=== PATIENT | male | born 1980 | race Caucasian/White ===

== ENCOUNTER 2024-12-19 12:58 | Inpatient (IN) | payer MEDICAID, SELFPAY ==
[2024-12-19 13:12] VITALS: BP 126/76; PULSE 72; O2SAT 94
--- NOTE | 2024-12-19 13:34 | ED.GENADULT ---
HPI - General Adult General Chief complaint: Extremity Injury, Lower Stated complaint: bilateral numbness feet Time Seen by Provider: 12/19/24 13:32 Source: patient and RN notes reviewed Mode of arrival: ambulatory Limitations: no limitations History of Present Illness ED Provider: Jessica Delacruz HPI narrative: This is a 89-scet-dla-male, with a hx of DM, HTN, HLD, spinal stenosis who presents emergency department from [facility] on section 21 with concerns of bilateral foot and leg weakness. Patient reports that yesterday he developed a numbness and tingling in his bilateral feet. He states that this morning he awoke and he felt as though his feet were cold and progressively had worsening numbness and tingling. He states that he was able to ambulate at that time and went back to bed after receiving his medications from [facility]. He awoke after a nap this afternoon and he has been unable to walk due to numbness and weakness in his bilateral legs.. He states that he has numbness and weakness from his bilateral knees distally. He states that this is never happened to him before. He does report over the last several days he has had diarrhea, states he has been taking anti-diarrheal medications. No bloody or black stool. No fevers or chills. No chest pain or shortness of breath. No abdominal pain, nausea, or vomiting. No history of IVDA. Patient does endorse back pain. No urinary or bowel retention or incontinence. No saddle anesthesia. MD complaint: Bilateral foot and leg weakness Onset (ago): day(s) Radiation: back Severity: moderate Quality: aching Pain Consistency: constant Relieving factors: none Exacerbating factors: none Associated symptoms: denies other symptoms Treatments prior to arrival: none Related Data Home Medications ?Medication ?Instructions ?Recorded ?Confirmed acetaminophen 325 mg tablet 650 mg PO Q4H PRN Fever Or Pain 12/20/24 12/20/24 aluminum-mag hydroxide-simethicone 30 ml PO QID PRN Constipation 12/20/24 12/20/24 200 mg-200 mg-20 mg/5 mL oral susp benzocaine 15 mg lozenges 15 mg mucous membrane Q2H PRN Sore 12/20/24 12/20/24 Throat calcium carbonate 500 mg PO Q4H PRN Heartburn 12/20/24 12/20/24 divalproex 500 mg tablet,extended 1,000 mg PO BEDTIME 12/20/24 12/20/24 release 24 hr docusate sodium 100 mg tablet 100 mg PO BID 12/20/24 12/20/24 glipizide 10 mg tablet 10 mg PO BID 12/20/24 12/20/24 guaifenesin 600 mg tablet, 1,200 mg PO Q12H PRN Cough 12/20/24 12/20/24 extended release 12 hr (Mucinex) hydroxyzine pamoate 50 mg capsule 50 mg PO Q4H PRN Anxiety 12/20/24 12/20/24 lisinopril 40 mg tablet 40 mg PO BEDTIME blood pressure 12/20/24 12/20/24 metformin 500 mg tablet 500 mg PO BIDWMEAL 12/20/24 12/20/24 tramadol 25 mg tablet 25 mg PO Q6H PRN pain 12/20/24 12/20/24 Allergies Allergy/AdvReac Type Severity Reaction Status Date / Time ketorolac (From Toradol) Allergy Unknown Verified 12/19/24 13:43 Review of Systems Review of Systems: Constitutional : No Fever, No Chills ENT/Mouth : No sore throat, No Rhinorrhea Eyes: No Eye Pain, No Swelling, No Redness Cardiovascular : No Chest Pain, No SOB Respiratory : No Cough, No Sputum Gastrointestinal : No Nausea, No Vomiting, No Diarrhea, No abdominal Pain Genitourinary : No Dysuria, No Hematuria Musculoskeletal : No joint pain, No Myalgias, No Joint Swelling Skin : No Skin Lesions Neuro : No Weakness, No Numbness, No Headache All other systems reviewed and are negative Yes all other systems are reviewed and are negative Constitutional: Constitutional: Reports as per HPI Eyes: Eyes: Reports as per HPI, Denies change in vision and Denies eye discharge ENT: Reports system reviewed and no additional complaints, except as documented, Reports as per HPI, Reports Normal hearing present and Denies facial pain Cardiovascular: Cardiovascular: Reports as per HPI and Denies chest pain Respiratory: Respiratory: Reports as per HPI and Denies cough Gastrointestinal: Gastrointestinal: Reports as per HPI, Reports no additional gastrointestinal complaints, Denies abdominal pain, Denies diarrhea, Denies nausea and Denies vomiting Genitourinary: Genitourinary: Reports as per HPI Musculoskeletal: Musculoskeletal: Reports no additional musculoskeletal complaints and Reports as per HPI Integumentary/Breasts: Skin/Breast: Reports system reviewed and no additional complaints, except as docu, Reports as per HPI, Reports erythema, Denies rash and Denies wounds Neurologic: Reports Normal hearing present Psychiatric: Psychiatric: Reports no additional psychiatric complaints and Reports as per HPI Endocrine: Endocrine: Reports no additional endocrine complaints and Reports as per HPI Hematologic/Lymphatic: Hematologic/Lymphatic: Reports no additional hematologic/lymphatic complaints and Reports as per HPI Allergic/Immunologic: Allergic/Immunologic: Reports no additional allergic/immunologic complaints and Reports as per HPI [facility] Past Medical History Attestation statement: The following information was validated with the patient. Medical History (Updated 12/20/24 @ 12:01 by Marta Miller CNP) ADHD Bipolar disorder Chronic back pain Morbid obesity Hyperlipidemia Essential hypertension Type 2 diabetes mellitus Social History Social History Advance Directives: No Advance Directives Information Provided: Yes service: No Physical Exam ED Vital Signs: Vital Signs - 24 hr 12/19/24 13:42 12/19/24 18:14 12/19/24 19:54 Temperature 97.8 F 98 F 97.7 F Pulse Rate 93 75 84 Respiratory Rate 16 16 Blood Pressure 115/70 106/65 Pulse Oximetry 94 97 94 Oxygen Delivery Method Room Air Room Air Room Air 12/19/24 21:26 12/20/24 00:05 Temperature 97.7 F 98.2 F Pulse Rate 94 86 Respiratory Rate 22 H Blood Pressure 120/81 115/65 Pulse Oximetry 95 98 Oxygen Delivery Method Room Air Room Air BMI result Body Mass Index 60.7 Const General: cooperative, comfortable and no acute distress Orientation/consciousness: patient oriented x3 Limitations: no limitations [facility] Head: Yes normal to inspection, Yes normocephalic and Yes atraumatic Ears: hearing grossly normal bilaterally General nose exam: Normal external nose present Face and sinus: Yes normal facial exam Mouth: Normal oral and palatal mucosa present, oropharynx normal and moist mucous membranes Throat: Yes posterior oropharynx normal Eyes General: appearance normal, both eyes and all related structures Eyelids: Yes eyelids normal Conjunctivae: conjunctivae normal Sclerae: sclerae normal Pupils: Equal, round and reactive pupils present EOM: EOMs intact bilaterally Neck Neck: Yes normal visual inspection, Yes full ROM and Yes no lymphadenopathy Lymphatic: no lymphadenopathy noted Chest Chest palpation & inspection: normal inspection of the chest Resp Effort & Inspection: normal respiratory effort and able to speak in complete sentences Auscultation: clear to auscultation bilaterally Cardio Rate: regular rate Rhythm: regular rhythm Heart sounds: S1 normal heart sound present and S2 normal heart sound present GI Inspection: Yes normal to inspection Skin General skin exam: no rashes or lesions noted Trauma: no lacerations or abrasions Wounds: no wounds Neuro Other: BL patellar reflexes 1+ bilaterally. Decreased sensation to BL lower extremities circumfrentially. Legs are well perfused. Strong DP pulses. General: patient oriented x3, moves all extremities and Unable to assess gait Cranial nerves: Yes CN's II-XII intact bilaterally, Yes Equal, round and reactive pupils present and Yes Normal hearing present Cognition (Neuro): normal cognition Gait exam (Neuro): Unable to assess gait Pupils: Normal pupillary reactivity/response: bilateral Extrem Other: Unable to lift legs up off stretcher secondary to weakness. General: Yes normal to inspection Right upper extremity: normal to inspection Left upper extremity: normal to inspection Left lower extremity: normal to inspection Course Reevaluation(s) Reevaluation #1: Patient protein elevated which indcated Guillan Bare Disease. Dr. Govea states patient could be admitted to the hospitalist. Case was discussed with Dr. Gonzalez ICU Attending who states iF patients FVC is greater than a 1000 and negative inspiratory pressure over 30 patient could go to the hospitalist. Respiratory therapist Angel evaluated patient FVC 4,000 and NIP is 40. IV IG ordered dose was discussed with pharmacist Saeid who states patient will be receiving 70 g per day. Once patient received medication. Patient is no longer have weakness. Patient has complete range of motion of lower extremities with sensation and strength. Rectal tone who is normal. Negative saddle anesthesia. Reflexes intact. Initially hospitalist Dr. Meneses when and patient transfer for MRI to rule out cauda equinus syndrome. [place], and [facility] send rejected transferred due to patient's size. Upon re-evaluation by Dr. Meneses she states patient will be admitted to the hospital due to patient's improvement in symptoms. Patient completely moving all extremities. Patient has unlikely has cauda equinus. ESR CRP negative. Unlikely epidural abscess. Time: 01:30 Medications Administered Generic Name Dose Route Start Last Admin Trade Name Freq PRN Reason Stop Dose Admin Immune Globulin 10 gm in 100 mls @ 91 mls/hr 12/20/24 00:00 12/20/24 00:47 Gammagard 10% IV 12/24/24 01:06 Infused DAILY@0000 [facility] Infusion As Directed Immune Globulin 30 gm in 300 mls @ 91 mls/hr 12/20/24 01:10 12/20/24 04:47 Gammagard 10% IV 12/24/24 04:28 Infused DAILY@0110 [facility] Infusion As Directed Immune Globulin 30 gm in 300 mls @ 91 mls/hr 12/20/24 04:30 12/20/24 08:55 Gammagard 10% IV 12/24/24 07:48 Infused DAILY@0430 [facility] Infusion As Directed Insulin Human Lispro 0 unit 12/20/24 07:30 12/20/24 09:00 Insulin Lispro 100 Unit/Ml 3 Ml Vial SUBCUT [facility] Protocol Oxycodone HCl 5 mg 12/20/24 03:25 12/20/24 10:17 Oxycodone Hcl Immed Release 5 Mg Tablet PO 5 mg Q6H PRN Administration chronic pain Sodium Chloride 3 ml 12/20/24 08:00 12/20/24 10:13 0.9 % Sodium Chloride Flush 3 Ml Syringe IVFLUSH 3 ml [facility] Administration Discontinued Medications Generic Name Dose Route Start Last Admin Trade Name Ann PRN Reason Stop Dose Admin Atorvastatin Calcium 80 mg 12/20/24 02:30 12/20/24 02:49 Atorvastatin Calcium 80 Mg Tablet PO 12/20/24 02:31 80 mg ONCE ONE Administration Acetaminophen 1,000 mg in 100 mls @ 400 mls/hr 12/19/24 15:35 12/19/24 18:00 Ofirmev IV 12/19/24 15:49 Infused ONCE ONE Infusion Morphine Sulfate 4 mg 12/19/24 15:35 12/19/24 16:20 Morphine Sulfate 4 Mg/Ml Cartridge IVPUSH 12/19/24 15:36 4 mg ONCE ONE Administration Protocol Morphine Sulfate 4 mg 12/19/24 17:14 12/19/24 18:00 Morphine Sulfate 4 Mg/Ml Cartridge IVPUSH 12/19/24 17:15 4 mg ONCE ONE Administration Protocol Morphine Sulfate 4 mg 12/19/24 21:16 12/19/24 21:23 Morphine Sulfate 4 Mg/Ml Cartridge IVPUSH 12/19/24 21:17 4 mg ONCE STA Administration Protocol Morphine Sulfate 4 mg 12/20/24 01:14 12/20/24 01:30 Morphine Sulfate 4 Mg/Ml Cartridge IVPUSH 12/20/24 01:15 4 mg ONCE ONE Administration Protocol Procedures Lumbar Puncture Time Out Performed: Yes Patient Position: upright Skin Prep: Povidone-Iodine 1% Local Anesthetic: lidocaine 1% Amount of anesthesia used (mL): 3 Spinal Needle Gauge: 20G Interspace Used: L4-L5 Fluid Initially Obtained: clear Complications: none Additional Comments: Patient tolerated procedure well without any complications or concerns. Medical Decision Making Medical Decision Making MDM Narrative: This is a 44-year-old male who presents emergency department for evaluation of bilateral leg weakness which started this morning. On arrival, vital signs within normal limits. He is speaking in full sentences under no acute distress. He has had a diarrheal like illness leading up to the last several days, has been taking Imodium for. No recent immunizations. It is noted that patient unable to plantar flex or dorsiflex. Patellar reflexes are very diminished, 1+ bilaterally. Reported numbness from the bilateral knees distally. He has no urinary or bowel retention or incontinence. No saddle anesthesia. Differential diagnoses include cauda equina syndrome, Guillain-Cowden, lumbar radiculopathy, diabetic neuropathy. I discussed this case with my attending physician, Dr. Oliveira. Will obtain labs, patient also will obtain an MRI emergently to rule out cauda equina syndrome. He has no history of IVDA therefore epidural abscesses unlikely. 4:13 PM 12/19/2024 (Jessica Delacruz PA-C): Patient will be medicated with IV Tylenol, and morphine. Labs returned, no leukocytosis, stable H&H, chemistry revealing no significant electrolyte derangement. ALT slightly elevated at 72, ESR, CRP pending. 5:59 PM 12/19/2024 (Jessica Delacruz PA-C): ESR within normal limits. Patient unfortunately was not able to fit within the MRI machine due to body circumference. Discussed this with my attending physician, will perform LP. 6:41 PM 12/19/2024 (Jessica Delacruz PA-C): Performed lumbar puncture with attending physician, Dr. Oliveira. Clear CSF noted. Patient tolerated procedure well without any complications or concerns. Sign-out given to my colleague, Jus Mcintosh PA-C pending CSF labs and disposition. If CSF is not consistent with Guillain-Cowden syndrome, then the patient may need to be transferred for MRI as we are unable to evaluate for cauda equina syndrome given new onset of bilateral lower extremity weakness and numbness. Patient previously had an MRI at [facility] and has fit in their MRI machine before. This may be an option. Sign-out given to my colleague, naima pending this.He 21:45, 12/19/2024 , Dr. Oliveira's attending physician note: HPI: 44-year-old male who presents emergency department for evaluation of bilateral leg weakness and numbness which started this morning after having an diarrheal illness x2 days. Patient describes the numbness and is starting in his knee in traveling up to his knees urine. He states that he is having difficulty walking secondary to the numbness. Patient does have a history of spinal stenosis states that he had an MRI and myelogram August 2024 done at [facility]. He denied fever, chills, nausea, vomiting, injection drug use. Exam: General: Awake, alert in no distress, weight 189 kg, elevated BMI 60.7 kilograms/meters sq. Head: Normocephalic, atraumatic EENT: PERRL, sclera and conjunctiva are normal, mouth with no erythema or exudates Neck: Supple, no adenopathy Lung: breath sounds symmetric, no wheezing, no rales and no rhonchi Chest: symmetric movement, nontender Heart: regular rate and rhythm, normal S1, S2 no murmurs or rubs Abdomen: soft, obese,non-tender, nondistended, normal bowel sounds Back: no vertebral tenderness, no CVAT Extremities: no deformities, moves all extremities symmetrically, no edema Neuro: Awake, alert, oriented, normal speech, cranial nerves 2-12 intact, moves all extremities symmetrically Psych: Pleasant, cooperative Medical decision making: Differential diagnosis: Includes but is not limited to Guillain-Cowden syndrome, cauda equina syndrome, , lumbar radiculopathy, diabetic neuropathy. 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 LP was performed the patient did have a high CSF protein level. Physician retail sales assistant Jus Mcintosh did discuss admission with the ICU attending, Dr. Gonzalez who recommended testing FVC and and NIP (negative inspiratory pressures) testing. These tests were done by the respiratory therapist and the patient performed well suggesting the does not have a respiratory involvement at this time. Therefore, the patient does not need ICU admission at this time and can be managed on the hospitalist service. IV IG was ordered and the patient was presented to the covering hospitalist who accepted the admission further treatment for possible Guillain-Cowden syndrome. I, Dr. Rolan Oliveira, personally evaluated the patient. I reviewed the physician retail sales assistant's documentation and I was available to supervise the management of the patient throughout the patient's course here in the emergency department. I agree with the treatment and plan. Further, I agree with the controlled substance given during the patient's treatment course 0 0 . My note reflects my personal findings on my history and exam. Course: Differential Diagnosis Differential Diagnoses: The differential diagnosis associated with the presentation includes See above Admission/Observation Consideration of admission/observation: Escalation of care including admission/observation considered (Your) Lab Data [facility] Lab Attestation statement: I reviewed the patient's lab results. See MDM 12/20/24 04:48 12/20/24 04:48 Labs: Lab Results 12/19/24 12/19/24 12/19/24 Range/Units 15:27 18:40 18:40 WBC 9.0 (4.8-10.8) X10*3/uL RBC 5.67 (4.60-5.80) X10*6/uL Hgb 15.5 (14.0-18.0) g/dl Hct 47.7 (42.0-52.0) % MCV 84.1 (80.0-98.0) fL MCH 27.3 (27.0-33.0) pg MCHC 32.5 (31.0-36.0) g/dl RDW 14.0 (11.0-16.0) % Plt Count 247 (160-400) X10*3/uL MPV 9.3 L (9.4-12.4) fL Immature Gran % (Auto) 0.2 (0.0-0.4) % Neut % (Auto) 53.0 (45-73) % Lymph % (Auto) 33.1 (20-40) % Bradley % (Auto) 10.5 (2-11) % Eos % (Auto) 2.6 (0-4) % Baso % (Auto) 0.6 (0-2) % Lymph # (Auto) 3.0 (1.2-4.9) X10*3/uL Bradley # (Auto) 1.0 (0.1-1.2) X10*3/uL Eos # (Auto) 0.2 (0.0-0.4) X10*3/uL Baso # (Auto) 0.1 (0.0-0.2) X10*3/uL Abs Immat Gran (auto) 0.02 (0.00-0.03) X10*3/uL Absolute Neuts (auto) 4.8 (2.0-8.3) x10*3/uL Absolute Nucleated RBC 0.000 (0.0-0.012) X10*3/uL Nucleated RBC % (auto) 0.0 (0.0-0.2) /100WBC ESR 13 (0-15) MM/HR Sodium 141 (135-145) mmol/L Potassium 4.2 (3.3-5.1) mmol/L Chloride 104 (96-108) mmol/L Carbon Dioxide 30 H (22-29) mmol/L Anion Gap 11 L (12-20) BUN 7 L (9-16) mg/dL Creatinine 0.60 (0.5-1.4) mg/dL Estim Creat Clear Calc 257.3 Estimated GFR > 60 Random Glucose 85 (60-115) mg/dL Calcium 9.2 (8.4-10.2) mg/dL Magnesium 1.9 (1.6-2.6) mg/dL Total Bilirubin 0.5 (0.0-1.0) mg/dL Direct Bilirubin 0.2 (0.0-0.5) mg/dL AST 35 (5-37) U/L ALT 72 H (0-40) U/L Alkaline Phosphatase 82 (39-117) U/L Total Creatine Kinase 140 (38-174) U/L C-Reactive Protein 0.59 H (< or = 0.50) mg/dL C-React Prot High Sens 4.8 H mg/L Total Protein 7.3 (6.5-8.0) g/dL Albumin 4.3 (3.5-5.0) g/dL TSH 0.44 (0.32-4.0) uIU/mL CSF Tube Number 2 4 CSF Volume 3.0 ML CSF Appearance CLEAR CSF Color COLORLESS CSF WBC 1 MM*3 CSF RBC 0 MM*3 CSF Lymphocytes 47 % CSF Monocytes % 53 % CSF Appearance (b) Clear, Colorless CSF Glucose 76 mg/dL CSF Total Protein 70.1 H (15-45) mg/dL CSF C.neoform/gat PCR Not Detected (Not Detect.) CSF CMV DNA (PCR) Not Detected (Not Detect.) CSF Enterovirus (PCR) Not Detected (Not Detect.) CSF E. coli K1 (PCR) Not Detected (Not Detect.) CSF H. influenzae (PCR) Not Detected (Not Detect.) CSF HSV I (PCR) Not Detected (Not Detect.) CSF HSV II (PCR) Not Detected (Not Detect.) CSF HHV 6 (PCR) Not Detected (Not Detect.) CSF L.monocytogenes PCR Not Detected (Not Detect.) CSF N. meningitidis PCR Not Detected (Not Detect.) CSF Parechovirus (PCR) Not Detected (Not Detect.) CSF S. agalactiae (PCR) Not Detected (Not Detect.) CSF S. pneumoniae (PCR) Not Detected (Not Detect.) CSF VZV (PCR) Not Detected (Not Detect.) Critical Care Time Critical Care Time Critical Care Time: Yes Total Critical Care Time: 60 Attestation: Consulted with Dr. Gonzalez ICU and Hospitalist for admission. IVIG ordered for Guillan Samaniego 70KG ordered. LP ordered. 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
[2024-12-19 13:42] VITALS: BP 115/70; PULSE 93; RESP 16; TEMP 36.6; O2SAT 94; BMI 60.7
[2024-12-19 15:31] LABS: MANUAL DIFF FLAG NO
[2024-12-19 15:38] LABS: Hematocrit 47.7 % (42.0-52.0); Hemoglobin 15.5 g/dl (14.0-18.0); Imm Gran Abs Auto 0.02 X10*3/uL (0.00-0.03); Imm Gran Pct Auto 0.2 % (0.0-0.4); Lymphocytes Absolute Auto 3.0 X10*3/uL (1.2-4.9); Mean Corpuscular HGB Conc 32.5 g/dl (31.0-36.0); Mean Corpuscular Hemoglobin 27.3 pg (27.0-33.0); Mean Corpuscular Volume 84.1 fL (80.0-98.0); NRBC Abs Auto 0.000 X10*3/uL (0.0-0.012); NRBC Pct Auto 0.0 /100WBC (0.0-0.2); Platelet Count 247 X10*3/uL (160-400); Red Blood Count 5.67 X10*6/uL (4.60-5.80); White Blood Count 9.0 X10*3/uL (4.8-10.8)
[2024-12-19 15:55] LABS: Alanine Aminotransferase 72 U/L (0-40); Albumin Level 4.3 g/dL (3.5-5.0); Anion Gap 11 (12-20); Aspartate Amino Transferase 35 U/L (5-37); Blood Urea Nitrogen 7 mg/dL (9-16); Calcium 9.2 mg/dL (8.4-10.2); Carbon Dioxide 30 mmol/L (22-29); Chloride 104 mmol/L (96-108); Creatinine Clr Calc Pharmacy 257.3; Estimated Glomerular Filt Rate > 60; Magnesium 1.9 mg/dL (1.6-2.6); Potassium 4.2 mmol/L (3.3-5.1); Sodium 141 mmol/L (135-145); Total Protein 7.3 g/dL (6.5-8.0)
[2024-12-19 16:35] LABS: Alkaline Phosphatase 82 U/L (39-117)
--- OUTSIDE RECORDS SUMMARY | 2024-12-19 17:05 | XMS_ITS | Encounter Summary ---
Author Organization [facility] Address [address] [place] [address] Phone Care Team Providers Care Ordnance Truck Installation Supervisor Name Role Phone Pcp, Not Required Primary Care Provider UnavailGordon Berry MD Primary Care Provider [phone] Nallely Bedolla MD Unavailable [phone] Doyle Garcia DO Unavailable Lainey Grewal NP Primary Care Provider [phone] Encounter Details Date Type Department Care Team (Late st Contact Info) Description 10/20/2022 Procedure [facility] Diagnostic Cardiology [address] [place] [address] Social History Tobacco Use Types Packs/Day Years Used Date Smoking Tobacco: Never Assessed Education Answer Date Recorded Are you interested in more education? Not on xavi e 07/16/2022 Are you concerned about learning? Not on file 07/16/2022 No 07/16/2022 No 07/16/2022 Digital Access Answer Date Recorded No 07/28/2022 No 07/28/2022 Reliable internet access at home? Not on file 07/28/2022 Device with a working camera? Not on file Intimate Partner Violence Answer Date R ecorded Are you denied basic needs s uch as food, clothing, or medical care? No 10/19/2022 In the past 12 months have y ou been in a relationship with a person who hurts, threatens, or tries to control you? No 10/19/2022 Are you denied basic needs s uch as food, clothing, or medical care? No 10/19/2022 In the past 12 months have y ou been in a relationship with a person who hurts, threatens, or tries to control you? No 10/19/2022 Sex and Gender Information Value Date Recorded Sex Assigned at Male 10/19/2022 11:49 PM EDT Legal Sex Male 5:55 PM EST Gender Identity Male 10/19/2022 11:49 PM EDT Sexual Orientation Straight 10/19/2022 11 :49 PM EDT documented as of this encounter Plan of Treatment Not on file documented as of this encounter Visit Diagnoses Not on filedocumented in this encounter Care Teams Ordnance Truck Installation Supervisor Relationship Specialty Start Date End Date Pcp, Not Required [address] [place] [id number] PCP - General 07/16/22 06/07/23 Gordon Russell MD [address] [place] [address] PCP - General Family Medicine 06/08/23 07/10/24 Lainey Grewal NP [address] [place] [phone] PCP - General Nurse Practitioner 07/11/24 Nallely Bedolla MD [address] [place] [phone] [email or web address] Primary Oncologist Medical Oncology 12/01/23 Doyle Garcia DO [address] [place] [id number] Family Medicine 12/10/23 documented as of this encounter Additional Source Comments The information contained in this document represents components of the legal health record. It is not the complete legal health record.[facility]
--- OUTSIDE RECORDS SUMMARY | 2024-12-19 17:05 | XMS_ITS | Encounter Summary ---
Author Organization [facility] Address [address] [place] [address] Phone Care Team Providers Care Micro Photographer Name Role Phone Pcp, Not Required Primary Care Provider UnavailGordon Berry MD Primary Care Provider Nallely Bedolla MD Unavailable [phone] Doyle Garcia DO Unavailable Lainey Grewal NP Primary Care Provider [phone] Encounter Details Date Type Department Care Team (Late st Contact Info) Description 10/19/2022 Procedure Pass [facility] CT Scan [address] [place] [address] Social History Tobacco Use Types Packs/Day Years [...] PM EDT documented as of this encounter Functional Status * Calculated C-SSRS Risk Score (Lifetime/Recent) Answer Date of Assessment Author Low Risk 10/19/2022 11:54 PM EDT Marta Quinones RN * [place] Suicide Severity Rating Scale (Screener/Recent Self-Report) Question Answer Date of Assessment Author 1. Wish to be (Past 1 Month) Yes 10/19/2022 11:54 PM EDT Yuliya Quinones RN 2. Non-Specific Active Suicidal Thoughts (Past 1 Month) No 10/19/2022 11:54 PM EDT Yuliya Quinones RN 6. Suicidal Behavior (Lifetime) No 10/19/2022 11:54 PM EDT Yuliya Quinones RN documented as of this encounter Plan of Treatment Not on file documented as of this encounter Visit Diagnoses Not on filedocumented in this encounter Care Teams Micro Photographer Relationship Specialty Start Date End Date Pcp, Not Required [address] [place] [address] PCP - General 07/16/22 06/07/23 Gordon Russell MD [address] [phone] PCP - General Family Medicine 06/08/23 07/10/24 Lainey Grewal NP [address] [place] [phone] PCP - General Nurse Practitioner 07/11/24 Nallely Bedolla MD [address] [place] [address] [email or web address] Primary Oncologist Medical Oncology 12/01/23 Doyle Garcia DO [address] [place] [address] Family Medicine 12/10/23 documented as of this encounter Additional Source Comments The information contained in this document represents components of the legal health record. It is not the complete legal health record.[facility]
--- OUTSIDE RECORDS SUMMARY | 2024-12-19 17:05 | XMS_ITS | Encounter Summary ---
Author Organization [facility] Address [address] [place] [address] Phone Care Team Providers Care Wrister Name Role Phone Pcp, Not Required Primary Care Provider UnavailGordon Berry MD Primary Care Provider Nallely Bedolla MD Unavailable [phone] Doyle Gracia DO Unavailable Lainey Grewal NP Primary Care Provider Encounter Details Date Type Department Care Team (Late st Contact Info) Description 07/27/2022 Procedure Pass [facility] CT Scan [address] [place] [address] Social History Tobacco Use Types Packs/Day Years [...] with a working camera? Not on file Sex and Gender Information Value Date Recorded Sex Assigned at Male 10/19/2022 11:49 PM EDT Legal Sex Male 5:55 PM EST Gender Identity Male 10/19/2022 11:49 PM EDT Sexual Orientation Straight 10/19/2022 11 :49 PM EDT documented as of this encounter Functional Status * Calculated C-SSRS Risk Score (Lifetime/Recent) Answer Date of Assessment Author No Risk Indicated 07/27/2022 5:07 PM EDT Shekhar Cox RN * [place] Suicide Severity Rating Scale (Screener/Recent Self-Report) Question Answer Date of Assessment Author 1. Wish to be (Past 1 Month) No 07/27/2022 5:07 PM EDT Shekhar Cox RN 2. Non-Specific Active Suicidal Thoughts (Past 1 Month) No 07/27/2022 5:07 PM EDT Shekhar Cox RN 6. Suicidal Behavior (Lifetime) No 07/27/2022 5:07 PM EDT Shekhar Cox RN documented as of this encounter Plan of Treatment Not on file documented as of this encounter Visit Diagnoses Not on filedocumented in this encounter Care Teams Wrister Relationship Specialty Start Date End Date Pcp, Not Required [address] [place] [phone] PCP - General 07/16/22 06/07/23 Gordon Russell MD [address] [place] [phone] PCP - General Family Medicine 06/08/23 07/10/24 Lainey Grewal NP [address] [place] [phone] PCP - General Nurse Practitioner 07/11/24 Nallely Bedolla MD [address] [place] [phone] [email or web address] Primary Oncologist Medical Oncology 12/01/23 Doyle Garcia DO [address] [place] [phone] Family Medicine 12/10/23 documented as of this encounter Additional Source Comments The information contained in this document represents components of the legal health record. It is not the complete legal health record.[facility]
--- OUTSIDE RECORDS SUMMARY | 2024-12-19 17:05 | XMS_ITS | Encounter Summary ---
Author Organization [facility] Address [address] [place] [address] Phone Care Team Providers Care Assembler Rubber Footwear Name Role Phone Pcp, Not Required Primary Care Provider UnavailGordon Berry MD Primary Care Provider Nallely Bedolla MD Unavailable [phone] Doyle Garcia DO Unavailable Lainey Grewal NP Primary Care Provider [phone] Encounter Details Date Type Department Care Team (Late st Contact Info) Description 10/19/2022 Procedure Pass [facility] CT Scan [address] [place] [address] Social History Tobacco Use Types Packs/Day Years [...] 11:54 PM EDT Marta Quinones RN * [place] Suicide Severity Rating Scale (Screener/Recent Self-Report) Question [...] on filedocumented in this encounter Care Teams Assembler Rubber Footwear Relationship Specialty Start Date End Date Pcp, Not Required [address] [place] [address] PCP - General 07/16/22 06/07/23 Gordon Russell MD [address] [phone] PCP - General Family Medicine 06/08/23 07/10/24 Lainey Grewal NP [address] [place] [phone] PCP - General Nurse Practitioner 07/11/24 Nallely Bedolla MD [address] [place] [address] [email or web address] Primary Oncologist Medical Oncology 12/01/23 Doyle Garcia DO [address] [place] [address] Family Medicine 12/10/23 documented as of this encounter Additional Source Comments The information contained in this document represents components of the legal health record. It is not the complete legal health record.[facility]
--- OUTSIDE RECORDS SUMMARY | 2024-12-19 17:05 | XMS_ITS | Encounter Summary ---
Author Organization [facility] Address [address] [place] [address] Phone Care Team Providers Care Mobile Security Architect Name Role Phone Pcp, Not Required Primary Care Provider UnavailGordon Berry MD Primary Care Provider Nallely Bedolla MD Unavailable [phone] Doyle Garcia DO Unavailable Lainey Grewal NP Primary Care Provider [phone] Encounter Details Date Type Department Care Team (Late st Contact Info) Description 10/19/2022 Procedure Pass [facility] Scan [address] [place] [address] Social History Tobacco Use Types Packs/Day Years [...] 11:54 PM EDT Marta Quinones RN * [place] Suicide Severity Rating Scale (Screener/Recent Self-Report) Question [...] on filedocumented in this encounter Care Teams Mobile Security Architect Relationship Specialty Start Date End Date Pcp, Not Required [address] [place] [address] PCP - General 07/16/22 06/07/23 Gordon Russell MD [address] [phone] PCP - General Family Medicine 06/08/23 07/10/24 Lainey Grewal NP [address] [place] [phone] PCP - General Nurse Practitioner 07/11/24 Nallely Bedolla MD [address] [place] [address] [email or web address] Primary Oncologist Medical Oncology 12/01/23 Doyle Garcia DO [address] [place] [address] Family Medicine 12/10/23 documented as of this encounter Additional Source Comments The information contained in this document represents components of the legal health record. It is not the complete legal health record.[facility]
--- OUTSIDE RECORDS SUMMARY | 2024-12-19 17:05 | XMS_ITS | Clinical Summary ---
Author Organization [facility] Address [address] [place] [address] Phone Care Team Providers Care Plow Holder Name Role Phone Laura Sevilla Primary Care Provider [phone] Allergies Active Allergy Reactions Criticality Noted Date Comments Ketorolac Anaphylaxis High 07/16/2022 Ketorolac Tromethamine Anaphylaxis High 04/06/2024 Medications acetaminophen (Tylenol) 500 MG tablet Take 500 mg by mouth every 6 (six) hours if needed for mild pain. Active amLODIPine (Norvasc) 10 MG tablet Take 10 mg by mouth daily. 5 Active ARIPiprazole (Abilify) 10 MG tablet Take 1 tablet by mouth daily. Active aspirin 81 MG chewable tablet Chew 81 mg in the morning. 3 Active atorvastatin (Lipitor) 80 MG tablet Take 80 mg by mouth daily at bedtime. 3 Active divalproex (Depakote) 250 MG EC tablet Take 1 tablet by mouth in the morning and 1 tablet before bedtime. Active DULoxetine (Cymbalta) [address] capsule Take 1 capsule by mouth once daily. 5 Active hydrOXYzine HCl (Atarax) 25 MG tablet Take 1 tablet by mouth 2 (two) times a day as needed for anxiety. 5 Active insulin glargine (Lantus/Basagla r) 100 UNIT/ML pen Inject 65 Units under the skin daily in the morning. 4 Active lisinopril 40 MG tablet Take 40 mg by mouth daily. 4 Active metFORMIN (Glucophage) 1000 MG tablet Take 1,000 mg by mouth in the morning and 1,000 mg in the evening. Take with meals. 5 Active calcium elemental (OsCal) 500 MG tablet Take 500 mg of elemental calcium by mouth in the morning and 500 mg of elemental calcium at noon and 500 mg of elemental calcium in the evening. Take with meals. 4 Active Active Problems No known active problems Resolved Problems Problem Noted Date Diagnosed Date Resolved Date Lower back pain 08/05/2024 08/07/2024 Acute exacerbation of chronic low back pain 08/05/2024 08/07/2024 Encounters Date Type Department Care Team Description 09/20/2024 9:01 PM EDT - 09/21/2024 7:01 AM EDT Emergency [facility] ADULT EMERGENCY DEPARTMENT [address] [place] [address] Shama Farr MD Back pain, unspecified back location, unspecified back pain laterality, unspecified chronicity (Primary Dx); Leg numbness Discharge Disposition: DISCHARGED TO HOME/ASSISTED LIVING/SELF CARE (ROUTINE DISCHARGE) 09/20/2024 Travel from Last 3 Months Social History Tobacco Use Types Packs/Day Years Used Date Smoking Tobacco: Every Day Cigarettes 0.5 27.8 Started: 1997 Smokeless Tobacco: Never Tobacco Cessation:Ready to Q uit: Not Asked; Counseling Given: Not Answered Alcohol Use Standard Drinks/Week Comments Not Currently 0 (1 standard drink = 0.6 oz pur e alcohol) last drink was 13 years ago [facility] Utilities Answer Date Recorded In the past 12 months has [facility] [employer], or water [employer] threatened to shut off services in your home? No 08/05/2024 Humiliation, Afraid, Rape, and Kick questionnair e Answer Date Recorded Within the last year, have y ou been afraid of your partner or ex-partner? No 08/05/2024 Within the last year, have y ou been humiliated or emotionally abused in other ways by your partner or ex-partner? No Within the last year, have y ou been kicked, hit, slapped, or otherwise physically hurt by your partner or ex-partner? No 08/05/2024 Within the last year, have y ou been raped or forced to have any kind of sexual activity by your partner or ex-partner? No 08/05/2024 AUDIT-C Answer Date Recorded Q1: How often do you have a drink containing alcohol? Never 08/05/2024 Q2: How many drinks containi ng alcohol do you have on a typical day when you are drinking? Patient does not drink Q3: How often do you have si x or more drinks on one occasion? Never 08/05/2024 Hunger Vital Sign Answer Date Recorded Within the past 12 months, y ou worried that your food would run out before you got the money to buy more. Often true 08/06/19 Within the past 12 months, t he food you bought just didn't last and you didn't have money to get more. Often true 08/05/2024 PRAPARE - Transportation Answer Date Re corded In the past 12 months, has l ack of transportation kept you from medical appointments or from getting medications? Yes 07/08 In the past 12 months, has l ack of transportation kept you from meetings, work, or from getting things needed for daily living? Yes 08/05/2024 Housing Stability Vital Sign Answer Sánchez e Recorded In the last 12 months, was t here a time when you were not able to pay the mortgage or rent on time? No 08/05/2024 In the past 12 months, how m any times have you moved where you were living? 2 08/05/2024 At any time in the past 12 m [facility], were you homeless or living in a correction (including now)? Yes 08/05/2024 Sex and Gender Information Value Date Recorded Sex Assigned at Not on file Legal Sex Male 5:08 PM EDT Gender Identity Not on file Sexual Orientation Not on file Last Filed Vital Signs Vital Sign Reading Time Taken Comments Blood Pressure 155/101 09/21/2024 6:20 AM EDT Pulse 87 09/21/2024 6:20 AM EDT Temperature 36.4 C (97.5 F) 09/21/2024 6:20 AM EDT Respiratory Rate 19 09/21/2024 6:20 AM EDT Oxygen Saturation 92% 09/21/2024 6:20 AM EDT Inhaled Oxygen Concentration - - Weight 188 kg (414 lb 3.9 oz) 08/07/2024 6:10 AM EDT Height 172.7 cm (5' 7.99 ) 08/05/2024 4:03 PM ED T Body Mass Index 63 08/05/2024 4:03 PM EDT Plan of Treatment Health Maintenance Due Date Last Done Comments Diabetes: Hemoglobin A1C 1982 Lipid Panel 1982 MMR Vaccines (1 of 1 - Standard series) 05/13/1983 Diabetes: Foot Exam 1992 Diabetes: Retinopathy Screening 1992 Varicella Vaccines (1 of 2 - 13+ 2-dose series) 05/13/1995 Hepatitis C Screening 2000 Hepatitis A Vaccines (1 of 2 - Risk 2-dose series) 2001 Hepatitis B Vaccines (1 of 3 - 19+ 3-dose series) 2001 Pneumococcal Vaccine: Pediatrics (0 to 5 Years) and At-Risk Patients (6 to 49 Years) (1 of 2 - PCV) 2001 Influenza Vaccine (#1) 2024 Creatinine Level 09/21/2025 09/21/2024, 08/06/2024, 08/04/2024 Potassium Level 09/21/2025 09/21/2024, 08/06/2024, 08/04/2024 Zoster Vaccines (1 of 2) 2032 TD Vaccine (21+ Years) 06/30/2033 07/01/2023 HIB Vaccines Aged Out No longer eligi ble based on patient's age to complete this topic HPV Vaccines Aged Out No longer eligi ble based on patient's age to complete this topic IPV Vaccines Aged Out No longer eligi ble based on patient's age to complete this topic Meningococcal B Vaccine Aged Out No l onger eligible based on patient's age to complete this topic Meningococcal Vaccine Aged Out No amanda avinash eligible based on patient's age to complete this topic Rotavirus Vaccines Aged Out No longer eligible based on patient's age to complete this topic Procedures Procedure Name Priority Date/Time Associated Diagnosis Comments MR LUMBAR SPINE WO CONTRAST STAT 09/21/2024 3:52 AM EDT AUTOMATED DIFFERENTIAL STAT 1:46 AM EDT COMPLETE BLOOD COUNT STAT 09/21/2024 1:46 AM EDT COMPREHENSIVE METABOLIC PANEL STAT 09/21/2024 1:46 AM EDT CBC AUTO DIFFERENTIAL STAT 09/21/2024 1:46 AM EDT from Last 3 Months Results * MR Lumbar Spine WO Contrast (09/21/2024 3:52 AM EDT) Anatomical Region Laterality Modality Spine, L-spine N/A Magnetic Resonan ce 09/21/2024 6:28 AM EDT Impressions 09/21/2024 8:27 AM EDT At L5-S1, there is mild right and moderate to severe left foraminal stenosis. There is possible impingement of the exiting left L5 nerve root. There is mild thecal sac narrowing predominantly due to epidural fat. Preliminary Report Signed by Daniel Taylor 09/21/2024 6:33 AM Signed by Juan Diego Edmond MD 09/21/2024 8:27 AM Narrative 09/21/2024 8:27 AM EDT MR LUMBAR SPINE WO CONTRAST CLINICAL INDICATION: r/o cauda equina. TECHNIQUE: MRI of the lumbar spine without the administration of intravenous contrast. COMPARISON: CT myelogram 08/05/2024 FINDINGS: The last well-formed disc is designated as L5-S1 for nomenclature purposes. The vertebral body heights and alignment are maintained. There is straightening of the usual lumbar lordosis. There is homogeneous bone marrow signal intensity throughout. The conus medullaris is within normal limits and terminates at L1-L2. The distal thecal sac is within normal limits. At T12-L1, there is minimal disc bulge and mild facet arthropathy without significant spinal canal or foraminal stenosis. At L1-L2 there is minimal disc bulge and facet arthropathy resulting in mild right foraminal stenosis. There is no significant spinal canal or left foraminal stenosis. At L2-L3, there is no significant spinal canal or foraminal stenosis. At L3-L4, there is no significant spinal canal or foraminal stenosis. At L4-L5, there is minimal disc bulge and facet arthropathy resulting in mild left greater than right foraminal stenosis. There is no significant spinal canal stenosis. At L5-S1, there is right eccentric disc bulge, facet arthropathy and epidural fat in mild thecal sac narrowing. There is mild right and moderate to severe left foraminal stenosis. There is possible impingement of the exiting left L5 nerve root. There is mild disc height loss. The prevertebral and paraspinal soft tissues are unremarkable. The visualized sacrum and sacroiliac joints are symmetric and intact. Procedure Note Juan Diego Edmond MD - 09/21/2024 MR LUMBAR SPINE WO CONTRAST CLINICAL INDICATION: r/o cauda equina. TECHNIQUE: MRI of the lumbar spine without the administration of intravenouscontrast. COMPARISON: CT myelogram 08/05/2024 FINDINGS: The last well-formed disc is designated as L5-S1 for nomenclaturepurposes. The vertebral body heights and alignment are maintained. There isstraightening of the usual lumbar lordosis. There is homogeneous bonemarrow signal intensity throughout. The conus medullaris is within normal limits and terminates at L1-L2. Thedistal thecal sac is within normal limits. At T12-L1, there is minimal disc bulge and mild facet arthropathy withoutsignificant spinal canal or foraminal stenosis. At L1-L2 there is minimal disc bulge and facet arthropathy resulting inmild right foraminal stenosis. There is no significant spinal canal orleft foraminal stenosis. At L2-L3, there is no significant spinal canal or foraminal stenosis. At L3-L4, there is no significant spinal canal or foraminal stenosis. AtL4-L5, there is minimal disc bulge and facet arthropathy resulting in mildleft greater than right foraminal stenosis. There is no significant spinalcanal stenosis. At L5-S1, there is right eccentric disc bulge, facet arthropathy andepidural fat in mild thecal sac narrowing. There is mild right andmoderate to severe left foraminal stenosis. There is possible impingementof the exiting left L5 nerve root. There is mild disc height loss. The prevertebral and paraspinal soft tissues are unremarkable. The visualized sacrum and sacroiliac joints are symmetric and intact. IMPRESSION: At L5-S1, there is mild right and moderate to severe left foraminalstenosis. There is possible impingement of the exiting left L5 nerve root.There is mild thecal sac narrowing predominantly due to epidural fat. Preliminary Report Signed by Daniel Taylor 09/21/2024 6:33 AM Signed by Juan Diego Edmond MD 09/21/2024 8:27 AM us Shama Farr MD IMG MRI PROCEDURES Final Resul t * (ABNORMAL) Automated Differential (09/21/2024 1:46 AM EDT) Neutrophils % 69.3(H) 41.0 - 67.0 % 09/21/2024 2:13 AM [facility] Lymphocytes % 20.9(L) 28.0 - 42.0 % 09/21/2024 2:13 AM [facility] Monocytes % 7.6 4.0 - 9.0 % 09/21/2024 2:13 AM [facility] Eosinophils % 1.6 0.0 - 5.0 % 09/21/2024 2:13 AM [facility] Basophils % 0.3 0.0 - 1.0 % 09/21/2024 2:13 AM [facility] Immature Granulocytes % 0.3 0.0 - 1.0 % 09/21/2024 2:13 AM [facility] Absolute Neutrophils 7.99(H) 1.60 - 6.20 10*3/uL 09/21/2024 2:13 AM [facility] Absolute Lymphocytes 2.40 1.10 - 3.90 10*3/uL 09/21/2024 2:13 AM [facility] Absolute Monocytes 0.87(H) 0.20 - 0.80 10*3/uL 09/21/2024 2:13 AM [facility] Absolute Eosinophils 0.18 0.00 - 0.50 10*3/uL 09/21/2024 2:13 AM [facility] Absolute Basophils 0.03 0.00 - 0.10 10*3/uL 09/21/2024 2:13 AM [facility] Absolute Immature Granulocytes 0.03 0.00 - 0.10 10*3/uL 09/21/2024 2:13 AM [facility] Blood Venous blood / Unknown Venipuncture / Unknown 09/21/2024 1:46 AM EDT 09/21/2024 1:59 AM EDT us Shama Farr MD LAB BLOOD ORDERABLES Final Res ult [facility] [address] [place] [address], [place] * (ABNORMAL) Complete Blood Count (09/21/2024 1:46 AM EDT) WBC 11.5(H) 4.0 - 9.0 10*3/uL 09/21/2024 2:[facility] Hemoglobin 16.3 13.6 - 16.7 g/dL 09/21/2024 2:13 AM [facility] Hematocrit 50.0(H) 40.0 - 49.0 % 09/21/2024 2:13 AM [facility] RBC 5.83(H) 4.50 - 5.70 10*6/uL 09/21/2024 2:13 AM [facility] MCV 85.8 82.3 - 93.2 fL 09/21/2024 2:13 AM [facility] MCH 28.0 27.8 - 31.9 pg 09/21/2024 2:13 AM [facility] MCHC 32.6(L) 32.8 - 35.5 g/dL 09/21/2024 2:13 AM [facility] RDW 13.6 12.0 - 15.0 % 09/21/2024 2:13 AM [facility] Platelet Count 291 130 - 350 10*3/uL 09/21/2024 2:13 AM [facility] MPV 9.7 7.5 - 10.7 fL 09/21/2024 2:13 AM [facility] NRBC % 0.0 <=0.0 % 09/21/2024 2:13 AM [facility] Absolute NRBC 0.00 <=0.00 10*3/uL 09/21/2024 2:13 AM [facility] Blood Venous blood / Unknown Venipuncture / Unknown 09/21/2024 1:46 AM EDT 09/21/2024 1:59 AM EDT us Shama Farr MD LAB BLOOD ORDERABLES Final Res ult [facility] [address] [place] [address], * (ABNORMAL) Comprehensive Metabolic Panel (09/21/2024 1:46 AM EDT) Sodium 136 135 - 145 mmol/L 09/21/2024 2:35 AM [facility] Potassium 4.7 3.4 - 5.2 mmol/L 09/21/2024 2:35 AM [facility] Chloride 102 99 - 109 mmol/L 09/21/2024 2:35 AM [facility] Carbon Dioxide 25 21 - 30 mmol/L 09/21/2024 2:35 AM [facility] Blood Urea Nitrogen (BUN) 13 7 - 22 mg/dL 09/21/2024 2:35 AM [facility] Creatinine 0.74 0.70 - 1.30 mg/dL 09/21/2024 2:35 AM [facility] Glucose 216(H) 65 - 99 mg/dL 09/21/2024 2:35 AM [facility] Calcium 9.7 8.6 - 10.3 mg/dL 09/21/2024 2:35 AM [facility] Anion Gap 9 5 - 15 mmol/L 09/21/2024 2:35 AM [facility] eGFR 116 mL/min/1. 73m*2 09/21/2024 2:35 AM [facility] Comment: Calculation based on the Chronic Kidney Disease Epidemiology Collaboration (CKD- EPI) equation refit without adjustment for race. *This eGRF calculation is based on the [id number]-[id number] creatinine equations for adults designed to estimate glomerular filtration rate (eGFR) without race adjustment factors. *This eGFR results are indexed to standard body surface area (BSA) 1.73 M(2). *eGFR results should only be used for adult patients >=18 years old. *Use of nonindexed eGFR values (mL/min) should be considered for drug dosing decisions. Total Protein 7.7 6.0 - 8.0 g/dL 09/21/2024 2:35 AM [facility] Albumin 4.4 3.5 - 5.2 g/dL 09/21/2024 2:35 AM [facility] Globulin, Total 3.3 g/dL 2:35 AM [facility] A/G Ratio 1.3 09/21/2024 2:35 AM [facility] Bilirubin, Total 0.4 0.1 - 1.2 mg/dL 09/21/2024 2:35 AM [facility] Alanine Aminotransferase (ALT) 49 7 - 52 U/L 09/21/2024 2:35 AM [facility] Aspartate Aminotransferase (AST) 29 5 - 45 U/L 09/21/2024 2:35 AM [facility] Alkaline Phosphatase 89 34 - 104 U/L 09/21/2024 2:35 AM [facility] Blood Venous blood / Unknown Venipuncture / Unknown 09/21/2024 1:46 AM EDT 09/21/2024 1:59 AM EDT us Shama Farr MD LAB BLOOD ORDERABLES Final Res ult [facility] [address] [place] [address], from Last 3 Months Insurance [place] Member Subscriber Plan / Payer (Ef fective 2024-Present) Name:David Arriola Relation to Subscriber:Self Name:David Arriola Payer ID:[id number] Group ID:Not on file Type:Medicaid Address: [facility] [id number] [place] [id number] [place] [address] Member Subscriber Plan / Payer (Ef fective 2024-Present) Name:David Arriola Relation to Subscriber:Self Name:Dvaid Arriola Payer ID:[id number] Group ID:Not on file Type:Not on file Address: [address] [place] [address] Advance Directives For more information, please contact: [phone] (Available ) * Resuscitation Status (Latest Code Status on File) Date Activated Date Inactivated Comments 08/05/2024 5:15 AM 08/07/2024 6:27 PM Question Answer Comments If no pulse and/or not breathing: Attempt CPR If pulse and breathing present: Intubati on and usp mechanical ventilation Care Teams Plow Holder Relationship Specialty Start Date End Date Laura Sevilla [address] [place] [address] PCP - General 08/04/24
--- OUTSIDE RECORDS SUMMARY | 2024-12-19 17:05 | XMS_ITS | Encounter Summary ---
Author Organization [facility] Address [address] [place] [address] Phone Care Team Providers Care Boats Renter Name Role Phone Pcp, Not Required Primary Care Provider UnavailGordon Berry MD Primary Care Provider [phone] Nallely Bedolla MD Unavailable [phone] Doyle Garcia DO Unavailable Lainey Grewal NP Primary Care Provider [phone] Encounter Details Date Type Department Care Team (Late st Contact Info) Description 10/20/2022 Procedure Pass [facility] CT Scan [address] [place] [address] Social History Tobacco Use Types Packs/Day Years [...] on filedocumented in this encounter Care Teams Boats Renter Relationship Specialty Start Date End Date Pcp, Not Required [address] [place] [phone] PCP - General 07/16/22 06/07/23 Gordon Russell MD [address] [place] [address] PCP - General Family Medicine 06/08/23 07/10/24 Lainey Grewal NP [address] [place] [phone] PCP - General Nurse Practitioner 07/11/24 Nallely Bedolla MD [address] [place] [id number] [email or web address] Primary Oncologist Medical Oncology 12/01/23 Doyle Garcia DO [address] [place] [id number] Family Medicine 12/10/23 documented as of this encounter Additional Source Comments The information contained in this document represents components of the legal health record. It is not the complete legal health record.[facility]
--- OUTSIDE RECORDS SUMMARY | 2024-12-19 17:05 | XMS_ITS | Clinical Summary ---
Author Organization [facility] Address [address] [place] [address] Phone Care Team Providers Care Jet Inspector Name Role Phone Nallely Bedolla MD Unavailable Doyle Garcia Unavailable Lainey Grewal NP Primary Care Provider [phone] Allergies Active Allergy Reactions Criticality Noted Date Comments Ketorolac Medium 07/16/2022 Medications hydrOXYzine (VISTARIL) 25 MG capsule TAKE 1 CAPSULE BY MOUTH THREE TIMES DAILY NEEDED FOR ANXIETY AND TAKE TWO CAPSULES EVERY DAY AT BEDTIME FOR SLEEP FOR A TOTAL OF 3 PER DAY. 3 Active aspirin 81 mg chewable tablet Take 1 tablet (81 mg total) by mouth daily. 90 tablet 3 Active atorvastatin (LIPITOR) 80 MG tablet Take 1 tablet (80 mg total) by mouth daily. 90 tablet 3 Active amLODIPine (NORVASC) 10 MG tablet Take 10 mg by mouth daily. Active ARIPiprazole (ABILIFY) 10 MG tablet Take 10 mg by mouth daily. Active metFORMIN (GLUCOPHAGE) 1000 MG tablet Take 1,000 mg by mouth daily with breakfast. Active glipiZIDE (GLUCOTROL) 10 MG tablet Take 10 mg by mouth 2 (two) times a day before meals. Active divalproex (DEPAKOTE ER) 250 MG ER 24 hr tablet Take 250 mg by mouth 2 (two) times a day. 4 Active DULoxetine (CYMBALTA) 30 MG capsule Take 30 mg by mouth 2 (two) times a day. Active lisinopril (PRINIVIL,ZESTRIL ) 40 MG tablet Take 40 mg by mouth daily. Active simvastatin (ZOCOR) 20 MG tablet Take 20 mg by mouth nightly at bedtime. 4 Active TRULICITY 3 mg/0.5 mL subcutaneous injection Inject 3 mg under the skin every 7 days. 4 Active insulin glargine 100 unit/mL (3 mL) InPn injection pen daily. Active insulin lispro (ADMELOG, HUMALOG) 100 unit/mL injection pen before meals and at bedtime 4 Active Active Problems Problem Noted Date Diagnosed Date Polycythemia 12/16/2023 Leg weakness 10/19/2022 Adjustment disorder with anxious mood Tobacco use disorder Attention deficit hyperactiv ity disorder (ADHD), combined type Family History Medical History Relation Comments Lung cancer Maternal Grandfather smoker Relation Status Comments Maternal Grandfather Social History Tobacco Use Types Packs/Day Years Used Date Smoking Tobacco: Every Day Cigarettes Smokeless Tobacco: Current Tobacco Cessation:Ready to Q uit: Not Asked; Counseling Given: Not Answered Comments:24 years and between 0.5-3 packs a day Alcohol Use Standard Drinks/Week Comments Not Currently 0 (1 standard drink = 0.6 oz pur e alcohol) Child or Family Care Answer Date Record ed Do you have problems with on e of the following making it difficult for you to work, study, or receive health care? I choose not to answer 12/10/2023 Education Answer Date Recorded Are you interested in help w ith more adult education (for example, completing high school, GED, job training, learning the [place] language, technical skills, or developing parenting skills)? Yes 12/10/2023 Are you concerned about learning? Not on file 12/10/2023 Yes 12/10/2023 No 12/10/2023 Food Answer Date Recorded Within the past 6 months we worried whether our food would run out before we got money to buy more. Sometimes True 024 Within the past 6 months the food we bought just didn't last and we didn't have enough money to get more. Sometimes True 06/2023 Residential Stability Answer Date Recor ded What is your housing situation today? I do not have housing (staying in a hotel, in a detention, living outside on the street, on a beach, in a car, or in a park) 12/10/2023 How many times have you move d in the past 12 months? Zero (I did not move) 12/10/2023 Paying for Meds Answer Date Recorded Do you have trouble paying for medicines? No 12/10/2023 Paying Utility Bills Answer Date Record ed Do you have trouble paying y our heating or electricity bill? I choose not to answer 12/10/2023 Transportation Answer Date Recorded Has the lack of transportati on kept you from medical appointments or from getting medications? Yes 12/10/2023 Unemployment Answer Date Recorded Are you currently unemployed or working on a part-time or temporary basis, and looking for work? Yes 12/10/2023 Digital Access Answer Date Recorded No 07/28/2022 [...] Orientation Straight 10/19/2022 11 :49 PM EDT Last Filed Vital Signs Vital Sign Reading Time Taken Comments Blood Pressure 145/86 01/10/2024 3:25 PM EST Pulse 87 01/10/2024 3:25 PM EST Temperature 35.8 C (96.4 F) 12/10/2023 10:35 AM EDT Respiratory Rate 18 01/10/2024 3:25 PM EST Oxygen Saturation 97% 12/10/2023 10: 35 AM EDT Inhaled Oxygen Concentration - - Weight 174.6 kg (384 lb 14.8 oz) 01/10/2024 1:23 PM EST Height 179.4 cm (5' 10.63 ) 12/10/2023 10:35 AM EDT Body Mass Index 54.25 12/10/2023 10:35 AM EDT Plan of Treatment Health Maintenance Due Date Last Done Comments DEPRESSION SCREENING 1994 SMOKING Hx and SMOKELESS TOBACCO SCREENING 05/13/1995 HEPATITIS C SCREENING 2000 HIV ONE-TIME SCREENING (18-65 YEARS) 2000 PNEUMOCOCCAL VACCINES (0-49 years) (1 of 2 - PCV) 2001 VALPROIC ACID (DEPAKENE) LEVEL 07/28/2023 07/27/2022 INFLUENZA VACCINE (#1) 2024 COVID-19 VACCINE (1 - season) 2024 CREATININE LEVEL 01/09/2025 01/10/2024, 06/2023, 10/21/2022, Additional history exists POTASSIUM LEVEL 01/09/2025 01/10/2024, 10/0 06/2023, 10/21/2022, Additional history exists SCREENING FOR DIABETES 01/09/2027 01/10/2024, 2022 LIPID PANEL 10/20/2027 10/19/2022 Adult Td,Tdap Booster 06/30/2033 07/01/2023 HEPATITIS A VACCINES Aged Out No long er eligible based on patient's age to complete this topic HIB VACCINES Aged Out No longer eligi ble based on patient's age to complete this topic MENINGOCOCCAL VACCINES (ACWY) Aged Out No longer eligible based on patient's age to complete this topic MENINGOCOCCAL VACCINES (B) Aged Out N o longer eligible based on patient's age to complete this topic Medical Devices Not on file Procedures Procedure Name Priority Date/Time Associated Diagnosis Comments COMPREHENSIVE METABOLIC PANEL Routine 01/10/2024 1:32 PM EST Polycythemia LIPID PANEL Routine 10/19/2022 9:05 PM EDT VALPROIC ACID STAT 07/27/2022 5:58 PM EDT from Last 3 Months or Most Recently Relevant to Health Maintenance Results * (ABNORMAL) Comprehensive metabolic panel (01/10/2024 1:32 PM EST) SODIUM 138 136 - 145 mmol/L [facility] Comment: POTASSIUM 3.8 3.4 - 5.1 mmol/L [facility] Comment: CHLORIDE 101 98 - 107 mmol/L [facility] Comment: CO2 24 22 - 31 mmol/L [facility] Comment: BUN 12 6 - 23 mg/dL [facility] Comment: CREATININE 0.73 0.50 - 1.20 mg/dL [facility] GLUCOSE 51(L) 70 - 100 mg/dL [facility] Comment: ALBUMIN 4.3 3.5 - 5.2 g/dL [facility] Comment: TOTAL PROTEIN 7.6 6.4 - 8.3 g/dL [facility] Comment: CALCIUM 9.8 8.8 - 10.7 mg/dL [facility] Comment: ALKALINE PHOSPHATASE 82 35 - 130 U/L [facility] Comment: TOTAL BILIRUBIN 0.4 0.0 - 1.0 mg/dL [facility] Comment: AST 20 10 - 50 U/L [facility] Comment: ALT 29 10 - 50 U/L [facility] Comment: GLOBULIN 3.3 2.2 - 4.2 g/dL [facility] EGFR 117 >59 mL/min/1.7 3m2 [facility] Comment:Estimated glomerular filtration rate calculated using the CKD-EPI refit equation. ANION GAP 13 7 - 17 mmol/L [address] Comment: Blood 01/10/2024 1:32 PM EST 01/10/2024 1:38 PM EST us Nallely Bedolla MD LAB BLOOD ORDERABLES Final Re sult [facility] [facility] [address] [place], [place] [id number] [place] [address] * (ABNORMAL) Lipid panel (10/19/2022 9:05 PM EDT) HDL 24(L) >39 mg/dL [facility] CHOLESTEROL 195 0 - 200 mg/dL [facility] TRIGLYCERIDES 217(H) 0 - 150 mg/dL [facility] LDL 128 <130 mg/dL [facility] Comment: REFERENCE RANGE: Adult >= 18 years: - Desirable: <100 - Above desirable: 100-129 - Borderline high: 130-159 - High: 160-189 - Very High: >=190 Pediatric 2-17 years: - Acceptable: <110 - Borderline high: 110-129 - High: >=130 Reference ranges have not been established for patients that are less than 24 months of age. CARDIAC RISK RATIO 8.1(H) <5 [facility] NON-HDL CHOLESTEROL 171 mg/dL [facility] Comment:Reference Range: The non-HDL Cholesterol value should not exceed the desired LDL-C by more than 30 mg/dl. 10/19/2022 9:05 PM EDT 10/19/2022 10:11 PM EDT us Kedar Albarran MD, PhD, MPH LAB BLOOD ORDERABLES Final Result [address] [address] [phone] * (ABNORMAL) Valproic acid (07/27/2022 5:58 PM EDT) VALPROIC ACID <3.0(L) 50.0 - 100.0 ug/mL [facility] Blood 07/27/2022 5:58 PM EDT 07/27/2022 6:12 PM EDT us Ana Crawford MD LAB BLOOD ORDERABLES Final R esult [address] [address], [facility] [phone] from Last 3 Months or Most Recently Relevant to Health Maintenance Insurance [place] [phone] Advance Directives For more information, please contact: [phone] (9AM - 5PM [facility], Wednesday-Wednesday) Documents on File Type Date Recorded Patient Tankman Expl anation Healthcare Proxy 10/28/2022 4:25 PM * Full Code (Latest Code Status on File) Date Activated Date Inactivated Comments 10/19/2022 11:33 PM Question Answer Comments Code Status Confirmed With: Patient Code Status Communicated To: Inpatient Attending Care Teams Jet Inspector Relationship Specialty Start Date End Date Lainey Grewal NP [address] [facility] [place] [phone] PCP - General Nurse Practitioner 07/11/24 Nallely Bedolla MD [address] [place] [phone] [email or web address] Primary Oncologist Medical Oncology 12/01/23 Doyle Garcia DO [address] [place] [phone] Family Medicine 12/10/23 Additional Source Comments The information contained in this document represents components of the legal health record. It is not the complete legal health record.[facility]
--- OUTSIDE RECORDS SUMMARY | 2024-12-19 17:05 | XMS_ITS | Encounter Summary ---
Author Organization [facility] Address [address] [place] [address] Phone Care Team Providers Care Abrasive Worker Name Role Phone Pcp, Not Required Primary Care Provider UnavailGordon Berry MD Primary Care Provider Nallely Bedolla MD Unavailable [phone] Doyle Garcia DO Unavailable Lainey Grewal NP Primary Care Provider Encounter Details Date Type Department Care Team (Late st Contact Info) Description 10/20/2022 Procedure Pass [facility] MRI [address] [facility], [address]th [place] [address] Social History Tobacco Use Types Packs/Day Years [...] PM EDT documented as of this encounter Last Filed Vital Signs Vital Sign Reading Time Taken Comments Blood Pressure - - Pulse - - Temperature - - Respiratory Rate - - Oxygen Saturation - - Inhaled Oxygen Concentration - - Weight 162.8 kg (358 lb 14.5 oz) 10/20/2022 3:09 AM EDT Height 180.3 cm (5' 11 ) 10/20/2022 3:09 AM EDT Body Mass Index 50.06 10/20/2022 3:09 AM EDT documented in this encounter Plan of Treatment Not on file documented as of this encounter Visit Diagnoses Not on filedocumented in this encounter Care Teams Abrasive Worker Relationship Specialty Start Date End Date Pcp, Not Required [address] [place] [address] PCP - General 07/16/22 06/07/23 Gordon Russell MD [address] [place] [address] PCP - General Family Medicine 06/08/23 07/10/24 Lainey Grewal NP [address] [place] [phone] PCP - General Nurse Practitioner 07/11/24 Nallely Bedlola MD [address] [place] [phone] [email or web address] Primary Oncologist Medical Oncology 12/01/23 Doyle Garcia DO [address] [place] [address] Family Medicine 12/10/23 documented as of this encounter Additional Source Comments The information contained in this document represents components of the legal health record. It is not the complete legal health record.[facility]
--- OUTSIDE RECORDS SUMMARY | 2024-12-19 17:05 | XMS_ITS | Encounter Summary ---
Author Organization [facility] Address [address] [place] [address] Phone Care Team Providers Care Automatic Data Processing Planner Name Role Phone Pcp, Not Required Primary Care Provider UnavailGordon Berry MD Primary Care Provider Nallely Bedolla MD Unavailable [phone] Doyle Garcia DO Unavailable Lainey Grewal NP Primary Care Provider Encounter Details Date Type Department Care Team (Late st Contact Info) Description 07/27/2022 Procedure Pass [facility] CT Scan [address] [place] [address] Social History Tobacco Use Types Packs/Day Years [...] 5:07 PM EDT Shekhar Cox RN * [place] Suicide Severity Rating Scale (Screener/Recent Self-Report) Question [...] on filedocumented in this encounter Care Teams Automatic Data Processing Planner Relationship Specialty Start Date End Date Pcp, Not Required [address] [place] [address] PCP - General 07/16/22 06/07/23 Gordon Russell MD [address] [place] [address] PCP - General Family Medicine 06/08/23 07/10/24 Lainey Grewal NP [address] [place] [phone] PCP - General Nurse Practitioner 07/11/24 Nallely Bedolla MD [address] [place] [phone] [email or web address] Primary Oncologist Medical Oncology 12/01/23 Doyle Garcia DO [address] [place] [phone] Family Medicine 12/10/23 documented as of this encounter Additional Source Comments The information contained in this document represents components of the legal health record. It is not the complete legal health record.[facility]
--- OUTSIDE RECORDS SUMMARY | 2024-12-19 17:05 | XMS_ITS | Patient Health Record ---
Author Organization [facility] Physician Nesha martinez Billing Info Address [address] [place] [address] [place] [address] Care Team Providers Care Medical Practice Manager Name Role Phone GODWIN THRASHER Primary Care Provider Allergies Allergen (clinical drug ingredient) Drug/Non Drug Allergy documented on EMR Reaction Allergy Type Onset Date Status ketorolac Ketorolac intolerance Drug Allergy Activ e Reason For Referral No Information Medications Medication SIG (Take, Route, Frequency, Duration) Notes Start Date End Date Status Wellbutrin 300 every morning Active Pen Elizabeth 32G X 6 MM as directed Subcutaneously TID; E11.9,Z79.4 for 30 day(s) 12/28/2021 Active Hydrochlorothiazide 12.5 MG 1 tablet in the morning Orally Once a day for 90 day(s) 02/27/2022 Active Metformin HCl 1000 MG 1 tablet with a meal Orally BID for 90 days Active Lisinopril 40 MG 1 tablet Orally Once a day for 90 days Active Lantus SoloStar 100 UNIT/ML 46 units daily Subcutaneous Daily for 30 day(s) 12/25/2021 Active Atorvastatin Calcium 10 MG 1 tablet Orally Once a day for 90 day(s) 12/30/2021 Active Tramadol HCl 50 MG 1 tablet as needed Orally BID prn for 7 day(s) 02/04/2022 Not-Taking Insulin Lispro 100 UNIT/ML 7-10 Units Injection Before meals for 30 day(s) 12/16/2021 Active HydrALAZINE HCl 10 MG 1 tablet with food Orally Four times a day for 30 day(s) Active OneTouch Verio - as directed In Vitro TID, DX:E11.9, Z79.4 for 90 day(s) 12/31/2021 Active Cymbalta 60 MG 1 capsule Orally Twice daily Not-Taking GlipiZIDE 10 MG 1 tablet 30 minutes before breakfast Orally Once a day for 90 days Active Abilify 5 MG 1 tablet Orally Once a day for 30 day(s) Active Gabapentin 300 MG 2 capsule Orally QID for 30 day(s) Active Amlodipine Besylate 5 MG 1 tablet Orally Once a day for 30 day(s) Active Social History Tobacco Use: Social History Observation Description Date Details (start date - stop date) Current Smoker NA - NA Tobacco Status: Question Answer Notes Patient is a current every day smoker Section Notes: Family moved from [place] to [facility] in 2021 Family moved [place] to [facility] in 2021 Family moved [place] to [facility] in 2021 Family moved [place] to [facility] in 2021 Family moved [place] to [facility] in 2021 Family moved [place] to [facility] in 2021 Family moved [place] to [facility] in 2021 Problems Problem Type SNOMED Code ICD Code Onset Dates Problem Status W/U Status Risk Notes Problem 190858788 Type 2 diabetes mellitus without complications (E11.9) Active confirmed Problem 61757169 Other schizophrenia (F20.89) Active confirmed Problem 959823901 continuous churn buttermaker (current) use of insulin (Z79.4) Active confirmed Problem 229871613 Bipolar 1 disorder (F31.9) Active confirmed Problem 253337616 BMI 50.0-59.9, adult (Z68.43) Active confirmed Problem 42999739 Primary hypertension (I10) Active confirmed Problem 92804404 Cigarette nicotine dependence without complication (F17.210) Active confirmed Problem 86607669 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) Active confirmed Problem 105690442 Facet arthritis, degenerative, L5-S1 level, 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) Active confirmed MRI July 2021 : Moderate spondylosis with moderate/tricia re bilateral foraminal stenosis at L5-S1 Problem 765437683 History of suicide attempt (Z91.51) Active confirmed Plan Of Treatment No Information Insurance Providers Payer Name Payer Address Payer Phone Subscriber Number Group Number Insured Name Patient Relationship to Insured Coverage Start Date Coverage End Date [employer] [facility] [address] [place], [place] [id number] David Arriola Self - patient is the insured 2 Medical (General) History Medical History History ICD Code Diabetes Type II Hypertension Hypercholesterolemia 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
--- OUTSIDE RECORDS SUMMARY | 2024-12-19 17:05 | XMS_ITS | Encounter Summary ---
Author Organization [facility] Address [address] [place] [address] Phone Care Team Providers Care Residential Manager Name Role Phone Pcp, Not Required Primary Care Provider UnavailGordon Berry MD Primary Care Provider Nallely Bedolla MD Unavailable Doyle Garcia DO Unavailable Lainey Grewal NP Primary Care Provider Encounter Details Date Type Department Care Team (Late st Contact Info) Description 07/27/2022 Procedure Pass [facility] MRI [address] [facility], [address]th [place] [address] Social History Tobacco Use Types Packs/Day Years [...] - Inhaled Oxygen Concentration - - Weight 147.4 kg (325 lb) 07/27/2022 6:48 PM EDT Height 180.3 cm (5' 10.98 ) 07/27/2022 6:48 PM E DT Body Mass Index 45.35 07/27/2022 6:48 PM EDT documented in this encounter Functional Status * Calculated C-SSRS Risk Score (Lifetime/Recent) Answer Date of Assessment Author No Risk Indicated 07/27/2022 5:07 PM EDT Shekhar Cox RN * [place] Suicide Severity Rating Scale (Screener/Recent Self-Report) Question [...] on filedocumented in this encounter Care Teams Residential Manager Relationship Specialty Start Date End Date Pcp, Not Required [address] [place] [id number] PCP - General 07/16/22 06/07/23 Gordon Russell MD [address] [place] [address] PCP - General Family Medicine 06/08/23 07/10/24 Lainey Grewal NP [address] [place] [phone] PCP - General Nurse Practitioner 07/11/24 Nallely Bedolla MD [address] [place] [address] [email or web address] Primary Oncologist Medical Oncology 12/01/23 Doyle Garcia DO [address] [place] [phone] Family Medicine 12/10/23 documented as of this encounter Additional Source Comments The information contained in this document represents components of the legal health record. It is not the complete legal health record.[facility]
[2024-12-19 18:14] VITALS: PULSE 75; RESP 16; TEMP 36.6; O2SAT 97
--- NOTE | 2024-12-19 18:14 | PC.NURSE ---
and VINICIO at bedside for LP. Pt unable to fit into the MRI machine so he was sent back to the department.
[2024-12-19 19:54] VITALS: BP 106/65; PULSE 84; TEMP 36.5; O2SAT 94
[2024-12-19 20:46] LABS: Red Blood Cell CSF 0 MM*3; White Blood Cell CSF 1 MM*3
[2024-12-19 20:48] LABS: Lymphocytes CSF 47 %
[2024-12-19 21:26] VITALS: BP 120/81; PULSE 94; RESP 22; TEMP 36.5; O2SAT 95
[2024-12-19] MEDS: Immune Globulin 10% Gammagard 10 GM/100 ML VIAL IV (23:22)
[2024-12-20] VITALS (8 sets, daily range): BP systolic 115–137; BP diastolic 65–82; PULSE 70–89; RESP 16–21; TEMP 36.4–36.8; O2SAT 88–98; BMI 61.0
--- NOTE | 2024-12-20 | EMG_ITS ---
Chief complaint: Weakness and numbness of legs Reason for referral:Evaluate for Guillain-[place] Syndrome (GBS) Referred by: Rufina Mesa MD Procedure done: Bilateral upper and lower extremities NCS Impression: Nerve conduction study of the upper extremities is consistent with [id number] carpal tunnel syndrome bilaterally right worse than left. There is also evidence of ulnar nerve compression at the elbow bilaterally the F-waves are considered within normal limits. Nerve conduction study of the lower extremities shows evidence of motor axonal loss bilaterally and low amplitudes of the sensory potentials that can be seen with early neuropathy. The F-waves are prolonged in the lower extremities. These findings can be seen in the setting of peripheral neuropathy from various causes including early Guillain-[place] syndrome. In the clinical setting of diabetes of longstanding, this could be manifestations of a diabetic neuropathy. The findings are not developed well enough to be highly indicative of Guillain- [place] syndrome. Please see detailed neurophysiological report MTDD
--- NOTE | 2024-12-20 | ECG_ITS ---
Test Reason : ASSESS OF AUTONOMIC INSTABILITY Blood Pressure : */* mmHG Vent. Rate : 79 BPM Atrial Rate : 79 BPM P-R Int : 164 ms QRS Dur : 116 ms QT Int : 392 ms P-R-T Axes : 33 -31 15 degrees QTcB Int : 449 ms Normal sinus rhythm Left axis deviation Abnormal ECG No previous ECGs available Referred By: Rufina Mesa Electronically Signed By: Hema Mir
[2024-12-20] MEDS: Immune Globulin 10% Gammagard 30 GM/300 ML VIAL IV ×2 (00:50→04:48)
[2024-12-20 03:03] LABS: Thyroid Stimulating Hormone 0.44 uIU/mL (0.32-4.0)
--- NOTE | 2024-12-20 03:35 | P.HPHOSP_ITS ---
History of Present Illness Date of Service: 12/20/24 Attending physician on admission: Rufina Mesa Chief Complaint: Lower extremities paralysis David Arriola is a very pleasant 44 years old man with past medical history significant for chronic back pain secondary to spinal stenosis, bipolar disorder, hyperlipidemia, obesity and type 2 diabetes mellitus brought to the emergency department from [facility] on section 12, started to experience inability to move his legs upon waking up around lunch time. Yesterday, he started to feel pain and needles. He denied numbness in his genital area. There is no any issue with stool or urinary incontinence. He did not report any trauma, fever or chills. He did not report any acute cardiopulmonary, gastrointestinal or genitourinary symptoms. He mentioned that he has arm 6 episodes of nonbloody watery diarrhea that spontaneously resolved. He said that he is feeling better emotionally and is not suicidal. He did not report alcohol abuse, illicit drug use or tobacco smoking. In the ED he was found to have stable vital signs. Blood workup showed no leukocytosis and differential is normal. ESR is 13 and CRP is elevated at 0.59. TSH and albumin are normal. Patient underwent an LP and CSF analysis is remarkable for elevated total protein, 70.1. PCRs for multiple organisms are all negative. ECG showed normal sinus rhythm with no acute ischemic changes. ED tx: Acetaminophen 1 g IV, morphine 16 mg IV total Review of Systems 2 Review of Systems: All 12 systems were reviewed and normal except as noted in HPI. [facility] Medical History (Updated 12/20/24 @ 04:04 by Rufina Mesa MD) ADHD Bipolar disorder Chronic back pain Morbid obesity Hyperlipidemia Essential hypertension Type 2 diabetes mellitus Social History Advance Directives: No Advance Directives Information Provided: Yes Meds Allergies Allergy/AdvReac Type Severity Reaction Status Date / Time ketorolac (From Toradol) Allergy Unknown Verified 12/19/24 13:43 Active Medications: Current Medications Acetaminophen (Acetaminophen 325 Mg Tablet) 975 mg PO Q6H PRN PRN Reason: Pain, Mild 1-3,fever,headache Amitriptyline HCl (Amitriptyline Hcl 10 Mg Tablet) 10 mg PO DAILY PRN PRN Reason: Insomnia Calcium Carbonate (Calcium Carbonate 750 Mg Tab.Chew) 750 mg PO Q4H PRN PRN Reason: Heartburn Immune Globulin (Gammagard 10%) 10 gm in 100 mls @ 91 mls/hr IV DAILY@0000 [facility] Stop: 12/24/24 01:06 Last Infusion: 12/20/24 00:47 Dose: Infused Immune Globulin (Gammagard 10%) 30 gm in 300 mls @ 91 mls/hr IV DAILY@0110 [facility] Stop: 12/24/24 04:28 Last Admin: 12/20/24 00:50 Dose: 91 mls/hr Immune Globulin (Gammagard 10%) 30 gm in 300 mls @ 91 mls/hr IV DAILY@0430 [facility] Stop: 12/24/24 07:48 Magnesium Hydroxide (Milk Of Magnesia 30 Ml Oral.Susp) 30 ml PO DAILY PRN PRN Reason: Constipation Melatonin (Melatonin 3 Mg Tablet) 6 mg PO BEDTIME PRN PRN Reason: Insomnia Oxycodone HCl (Oxycodone Hcl Immed Release 5 Mg Tablet) 5 mg PO Q6H PRN PRN Reason: chronic pain Sodium Chloride (0.9 % Sodium Chloride Flush 3 Ml Syringe) 3 ml IVFLUSH QSHIFT [facility] Home Medications ?Medication ?Instructions ?Recorded ?Confirmed ?Last Taken ?Type amitriptyline 10 mg tablet 10 mg PO DAILY PRN insomnia 12/20/24 12/20/24 Unknown History Physical Exam 2 Vital Signs and Narrative: Vital Signs: Last Vital Signs Temp 98.2 F 12/20/24 00:05 Pulse 81 12/20/24 02:50 Resp 21 H 12/20/24 02:50 BP 136/76 12/20/24 02:50 Pulse Ox 94 12/20/24 02:50 O2 Del Method Room Air 12/20/24 02:50 BMI result Body Mass Index 60.7 General: Alert, oriented x3, in no acute distress. Cooperative and pleasant. Afebrile. Obese. HEENT: Head normocephalic, atraumatic. PER, EOMI. Sclerae anicteric, conjunctiva clear. Oropharynx without erythema or exudate. Mucous membranes moist. Neck: Supple. Heart: RRR, no murmurs, rubs or gallops. Lungs: Clear to auscultation bilaterally. No wheezes, rales, or rhonchi. Normal respiratory effort. Abdomen: Soft, non tenderness, nondistended, normoactive bowel sounds. No hepatosplenomegaly, masses, rebound or guarding. Extremities: No calf tenderness bilaterally, no swelling Musculoskeletal: Full range of motion. No joint swelling, deformity, or tenderness. Normal muscle tone and strength. Skin: Warm/Dry. No pallor. No jaundice. Neurologic: Alert & oriented x4. weaver narrow fabrics III-XII intact bilaterally. Moving all extremities spontaneously. Normal speech. Able to stand up without difficulty. Normal gait. Psychological: Normal mood and affect. Thought process coherent. Results Labs 12/19/24 15:27 12/19/24 15:27 Labs: Laboratory Results - last 24 hr 12/19/24 12/19/24 12/19/24 15: 18:40 18:40 MCV 84.1 MCH 27.3 MCHC 32.5 RDW 14.0 Plt Count 247 MPV 9.3 L Immature Gran % (Auto) 0.2 Neut % (Auto) 53.0 Lymph % (Auto) 33.1 Hayes % (Auto) 10.5 Eos % (Auto) 2.6 Baso % (Auto) 0.6 Lymph # (Auto) 3.0 Hayes # (Auto) 1.0 Eos # (Auto) 0.2 Baso # (Auto) 0.1 Abs Immat Gran (auto) 0.02 Absolute Neuts (auto) 4.8 Absolute Nucleated RBC 0.000 Nucleated RBC % (auto) 0.0 ESR 13 Anion Gap 11 L Estim Creat Clear Calc 257.3 Estimated GFR > 60 Random Glucose 85 Calcium 9.2 Magnesium 1.9 Total Bilirubin 0.5 Direct Bilirubin 0.2 AST 35 ALT 72 H Alkaline Phosphatase 82 Total Creatine Kinase 140 C-Reactive Protein 0.59 H Total Protein 7.3 Albumin 4.3 TSH 0.44 CSF Tube Number 2 4 CSF Volume 3.0 CSF Appearance CLEAR CSF Color COLORLESS CSF WBC 1 CSF RBC 0 CSF Lymphocytes 47 CSF Monocytes % 53 CSF Appearance (b) Clear, Colorless CSF Glucose 76 CSF Total Protein 70.1 H CSF C.neoform/gat PCR Not Detected CSF CMV DNA (PCR) Not Detected CSF Enterovirus (PCR) Not Detected CSF E. coli K1 (PCR) Not Detected CSF H. influenzae (PCR) Not Detected CSF HSV I (PCR) Not Detected CSF HSV II (PCR) Not Detected CSF HHV 6 (PCR) Not Detected CSF L.monocytogenes PCR Not Detected CSF N. meningitidis PCR Not Detected CSF Parechovirus (PCR) Not Detected CSF S. agalactiae (PCR) Not Detected CSF S. 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 Telemetry. Continue IVIG as per ED orders. Neuro checks. Check EMG. Check Lyme, Campylobacter, HIV, hepatitis panel, total CK, vitamin B12 and folate. FVC/NIF every 4 hours (first 4000/-40) -d/w ICU by ED if FVC below 1000 patient requiring ICU. Neurology consult. OT and PT consult. Type 2 diabetes mellitus. Continue Lantus and insulin sliding scale. Diabetic diet. Mood disorder. Continue home meds. Sectioned 12. Observation 1:1. Psychiatric consult. Essential hypertension. Continue hydrochlorothiazide. Obesity. BMI 60.7 kg/m2. On Mounjaro injection. Chronic back pain. Continue oxycodone. med rec pending Code status: Full DVT prophylaxis: SCDs only (recent LP). Patient will need hospitalization for at least 2 midnights for the imbalances syndrome treatment and management with IVIG, continue neuro checks, and evaluation by subspecialty. Quality Stroke Does the patient have a stroke diagnosis?: No VTE Prior VTE?: No VTE Risk Level:: Medical - moderate - high VTE Device Contraindication: N/A - Device Ordered VTE Drug Contraindication: Treatment Not Indicated
[2024-12-20] MEDS: oxyCODONE HCl Immed Release 5 MG TABLET PO ×3 (03:55→21:27)
[2024-12-20 05:26] LABS: MANUAL DIFF FLAG NO
[2024-12-20 05:31] LABS: Hematocrit 45.9 % (42.0-52.0); Hemoglobin 14.7 g/dl (14.0-18.0); Imm Gran Abs Auto 0.02 X10*3/uL (0.00-0.03); Imm Gran Pct Auto 0.3 % (0.0-0.4); Lymphocytes Absolute Auto 2.2 X10*3/uL (1.2-4.9); Mean Corpuscular HGB Conc 32.0 g/dl (31.0-36.0); Mean Corpuscular Hemoglobin 27.1 pg (27.0-33.0); Mean Corpuscular Volume 84.5 fL (80.0-98.0); NRBC Abs Auto 0.000 X10*3/uL (0.0-0.012); NRBC Pct Auto 0.0 /100WBC (0.0-0.2); Platelet Count 229 X10*3/uL (160-400); Red Blood Count 5.43 X10*6/uL (4.60-5.80); White Blood Count 7.0 X10*3/uL (4.8-10.8)
[2024-12-20 05:44] LABS: Anion Gap 14 (12-20); Blood Urea Nitrogen 11 mg/dL (9-16); Calcium 9.0 mg/dL (8.4-10.2); Carbon Dioxide 27 mmol/L (22-29); Chloride 101 mmol/L (96-108); Creatinine Clr Calc Pharmacy 217.4; Estimated Glomerular Filt Rate > 60; Potassium 3.8 mmol/L (3.3-5.1); Sodium 138 mmol/L (135-145)
[2024-12-20 06:05] LABS: HBS Num1 373.68 mIU/mL (0-7.99); HBc Num1 0.71 S/CO (0.00-0.79); HBsAGNum1 0.40 S/CO (0.00-0.99); Hepatitis A Antibody IgM 0.22 Index (0-0.79); Hepatitis B Surface Antigen Negative (Negative); ~HepC Num1 0.14 S/CO (0.00-0.79); ~Hepatitis A Antibody IgM Nonreactive (Nonreactive); ~Hepatitis B Surface Antibody REACTIVE (Nonreactive); ~Hepatitis C Antibody Nonreactive (Nonreactive)
[2024-12-20 06:14] LABS: Vitamin B12 524 pg/mL (200-900)
--- NOTE | 2024-12-20 09:00 | PC.NURSE ---
pt POC was not complete prior to breakfast. 4am bloodwork was BGL 141. about 45 minutes after waiting POC was 180. at this point holding insulin bc 180 was well after the pt ate and not wanting to drop pt significantly
[2024-12-20 09:03] LABS: Glucose, Whole Blood 180 mg/dL (60-115)
--- NOTE | 2024-12-20 10:03 | PHA.MEDREC ---
Addendum entered by Juan Swenson PharmD 12/20/24 10:04: reviewed Original Note: Pharmacy Consult ? Medication Reconciliation Pharmacy has completed the medication reconciliation[facility]
[2024-12-20] MEDS: 0.9 % Sodium Chloride Flush 3 ML SYRINGE IVFLUSH ×2 (10:13→21:36)
--- NOTE | 2024-12-20 11:50 | P.CNNE_ITS ---
History of Present Illness Data of Consult Service Date: 12/20/24 Primary Care Provider: Unknown Physician HPI Reason for consult: CHUY Yoder is a 44-year-old male patient with a medical history chronic back pain, spinal stenosis, bipolar disorder, hyperlipidemia, obesity, and type 2 diabetes brought to the emergency department from [facility] for reports of inability to move his legs upon waking up from a nap around lunchtime on 12/19/2024. The day prior, he started to feel pins and needles dose feet. He denied any traumas or back pain. He did however have some diarrhea leading up to the extremity symptoms. His ER workup included a mildly elevated ESR but otherwise stable blood work. He underwent a lumbar puncture with CSF analysis remarkable for an elevated protein of 70.1. He was started on IVIG therapy per typical dosing protocols for presumed GBS. He has not had resolution of his paresthesias and lower extremity weakness. He did also undergo an EMG study which was consistent with a mild axonal peripheral neuropathy. Of note, he does also have a history of diabetes. [facility] Past Medical History Medical History (Updated 12/20/24 @ 12:01 by Marta Miller CNP) ADHD Bipolar disorder Chronic back pain Morbid obesity Hyperlipidemia Essential hypertension Type 2 diabetes mellitus Social History Social History service: No Meds Allergies Allergy/AdvReac Type Severity Reaction Status Date / Time ketorolac (From Toradol) Allergy Unknown Verified 12/19/24 13:43 Active Medications: Current Medications Acetaminophen (Acetaminophen 325 Mg Tablet) 975 mg PO Q6H PRN PRN Reason: Pain, Mild 1-3,fever,headache Amitriptyline HCl (Amitriptyline Hcl 10 Mg Tablet) 10 mg PO DAILY PRN PRN Reason: Insomnia Calcium Carbonate (Calcium Carbonate 750 Mg Tab.Chew) 750 mg PO Q4H PRN PRN Reason: Heartburn Dextrose (Dextrose 50 % 25 Gm/50 Ml Syringe) 25 gm IVPUSH Q15M PRN; Protocol PRN Reason: per Hypoglycemia Standing Ord. Glucose (Glucose Gel 15 Gm Gel..Gram.) 15 gm PO Q15M PRN; Protocol PRN Reason: per Hypoglycemia Standing Ord. Immune Globulin (Gammagard 10%) 10 gm in 100 mls @ 91 mls/hr IV DAILY@0000 [facility] Stop: 12/24/24 01:06 Last Infusion: 12/20/24 00:47 Dose: Infused Immune Globulin (Gammagard 10%) 30 gm in 300 mls @ 91 mls/hr IV DAILY@0110 [facility] Stop: 12/24/24 04:28 Last Infusion: 12/20/24 04:47 Dose: Infused Immune Globulin (Gammagard 10%) 30 gm in 300 mls @ 91 mls/hr IV DAILY@0430 [facility] Stop: 12/24/24 07:48 Last Infusion: 12/20/24 08:55 Dose: Infused Insulin Human Lispro (Insulin Lispro 100 Unit/Ml 3 Ml Vial) [facility]; Protocol Last Admin: 12/20/24 09:00 Dose: Not Given Magnesium Hydroxide (Milk Of Magnesia 30 Ml Oral.Susp) 30 ml PO DAILY PRN PRN Reason: Constipation Melatonin (Melatonin 3 Mg Tablet) 6 mg PO BEDTIME PRN PRN Reason: Insomnia Oxycodone HCl (Oxycodone Hcl Immed Release 5 Mg Tablet) 5 mg PO Q6H PRN PRN Reason: chronic pain Last Admin: 12/20/24 10:17 Dose: 5 mg Sodium Chloride (0.9 % Sodium Chloride Flush 3 Ml Syringe) 3 ml [facility] [place] Admin: 12/20/24 10:13 Dose: 3 ml Home Medications ?Medication ?Instructions ?Recorded ?Confirmed ?Last Taken ?Type acetaminophen 325 mg tablet 650 mg PO Q4H PRN Fever Or Pain 12/20/24 12/20/24 Unknown History aluminum-mag hydroxide-simethicone 30 ml PO QID PRN Co nstipation 12/20/24 12/20/24 Unknown History 200 mg-200 mg-20 mg/5 mL oral susp benzocaine 15 mg lozenges 15 mg mucous membrane Q2H [place] N Sore 12/20/24 12/20/24 Unknown History Throat calcium carbonate 500 mg PO Q4H PRN Heartburn 12/20/24 12/20/24 Unknown History divalproex 500 mg tablet,extended 1,000 mg PO BEDTIME 12/20/24 12/20/24 Unknown History release 24 hr docusate sodium 100 mg tablet 100 mg PO BID 12/20/24 1 Unknown History glipizide 10 mg tablet 10 mg PO BID 12/20/24 Unknown History guaifenesin 600 mg tablet, 1,200 mg PO Q12H PRN Cough 12/20/24 12/20/24 Unknown History extended release 12 hr (Mucinex) hydroxyzine pamoate 50 mg capsule 50 mg PO Q4H PRN Anx iety 12/20/24 12/20/24 Unknown History lisinopril 40 mg tablet 40 mg PO BEDTIME blood press ure 12/20/24 12/20/24 Unknown History metformin 500 mg tablet 500 mg PO BIDWMEAL 12/20/24 12/20/24 Unknown History tramadol 25 mg tablet 25 mg PO Q6H PRN pain 12/20/24 Unknown History Physical Exam 2 Vital Signs: Vital Signs: Last Vital Signs Temp 97.8 F 12/20/24 09:40 Pulse 75 12/20/24 10:11 Resp 18 12/20/24 10:11 BP 130/74 12/20/24 09:40 Pulse Ox 95 12/20/24 10:11 O2 Del Method Nasal Cannula 12/20/24 10:11 O2 Flow Rate 2 12/20/24 10:11 BMI result Body Mass Index 60.7 Const: Orientation/consciousness: oriented to person, oriented to place and oriented to time Neuro: General: oriented to person, oriented to place, oriented to time and Unable to assess gait Cranial nerves: Yes CN's II-XII intact bilaterally C ognition (Neuro): normal cognition Gait exam (Neuro): Unable to assess gait Motor exam (neuro): 5/5 motor strength present throughout and no tremor noted Sensory Exam: Normal double simultaneous stimulation for sensation Deep tendon reflexes (DTR's): Right triceps reflex intensity grade: 1+, Left triceps reflex intensity grade: 1+, Rt Biceps (C5, C6): 1+, Left biceps reflex intensity grade: 1+, Right brachioradialis reflex intensity grade: 1+, Left brachioradialis reflex intensity grade: 1+, Right patellar reflex intensity grade: 0, Left patellar reflex intensity grade: 0, Right ankle reflex intensity grade: 0 and Left ankle reflex intensity grade: 0 Results Labs 12/20/24 04:48 12/20/24 04:48 Labs: Short CBC 12/19/24 12/20/24 Range/Units 15:27 04:48 WBC 9.0 7.0 (4.8-10.8) X10*3/uL Hgb 15.5 14.7 (14.0-18.0) g/dl Hct 47.7 45.9 (42.0-52.0) % Plt Count 247 229 (160-400) X10*3/uL BMP 12/19/24 12/20/24 15:27 04:48 Sodium 141 138 Potassium 4.2 3.8 Chloride 104 101 Carbon Dioxide 30 H 27 BUN 7 L 11 Creatinine 0.60 0.71 Calcium 9.2 9.0 Cardiac Enzymes 12/19/24 Range/Units 15:27 Total Creatine Kinase 140 (38-174) U/L Liver Function 12/19/24 Range/Units 15:27 Total Bilirubin 0.5 (0.0-1.0) mg/dL Direct Bilirubin 0.2 (0.0-0.5) mg/dL AST 35 (5-37) U/L ALT 72 H (0-40) U/L Alkaline Phosphatase 82 (39-117) U/L Albumin 4.3 (3.5-5.0) g/dL Microbiology Microbiology Results: Microbiology 12/19/24 18:40 Cerebrospinal Fluid Gram Stain - Preliminary 12/19/24 18:40 Cerebrospinal Fluid Fluid Description - Final 12/19/24 18:40 Cerebrospinal Fluid CSF Culture - Preliminary No growth to date. Assessment and Plan (1) Elevated CSF protein: Status: Acute (2) Weakness: Status: Acute (3) Paresthesias: Status: Acute Plan Paresh is a 44-year-old male patient with a medical history chronic back pain, spinal stenosis, bipolar disorder, hyperlipidemia, obesity, and type 2 diabetes brought to the emergency department from [facility] for reports of inability to move his legs upon waking up from a nap around lunchtime on 12/19/2024. He did have some paresthesias the day before and leading up to his lower extremity symptoms, he did have a diarrheal illness. His ER workup was noteworthy for an elevated CSF total protein (70.1) on lumbar puncture. He was started on IVIG therapy for presumed GBS. He had rapid resolution of his symptoms after his 1st dose of IVIG therapy and upon my exam, he had normal strength in his distal lower extremities as well as sensation. He did have diminished/absent reflexes. Response to IVIG therapy was remarkably quick. His EMG study showed a distal polyneuropathy with primarily axonal features. This however can be seen in patients with diabetic neuropathy. Of note, elevated CSF protein can also be seen in diabetic patients. Given the rapid onset of his symptoms however it seems reasonable to presume and treat as GBS. I would recommend finishing up a course of IVIG therapy with close monitoring of symptoms and physical exam as planned. Procedures Date of Service Date of Service: 12/20/24
--- NOTE | 2024-12-20 12:01 | MHC.CM.PN ---
THIS CM MET WITH PT, HE STATES HE WENT TO [facility] ON WEDNESDAY NIGHT, PRIOR TO THAT HE LIVED AT HOME WITH HIS AND SON IN [place]. DME: LEONILA GUSMAN. PT STATES HIS HCP IS HIS , COPY REQUESTED. DCP: PT STATES HE WOULD LIKE TO RETURN TO [facility] AT DISCHARGE, HE WILL NEED ASSISTANCE WITH TRANSPORTATION AT DISCHARGE. 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 LANCE RIZO AT [facility]
--- NOTE | 2024-12-20 13:06 | PC.NURSE ---
pt able to stand, walk and move lower extremities
[2024-12-20 13:30] LABS: Glucose, Whole Blood 156 mg/dL (60-115)
--- NOTE | 2024-12-20 15:50 | PM.EVENT ---
Event Note Date of Service: 12/20/24 Event Note: Pt seen/examined, labs, meds, iamging reviewed. He is admitted this morning with Guillain bare syndrome and has rapidly imrpvoed with IVIG. see by Neurology with the following remarks Response to IVIG therapy was remarkably quick. His EMG study showed a distal polyneuropathy with primarily axonal features. This however can be seen in patients with diabetic neuropathy. Of note, elevated CSF protein can also be seen in diabetic patients. Given the rapid onset of his symptoms however it seems reasonable to presume and treat as GBS. I would recommend finishing up a course of IVIG therapy with close monitoring of symptoms and physical exam as planned. Time Spent With Patient Time: Total time managing care of this patient today ____ minutes.
[2024-12-20 18:40] LABS: Glucose, Whole Blood 146 mg/dL (60-115)
--- NOTE | 2024-12-20 19:00 | PC.NURSE ---
this RN assumed care of this pt at this time, pt noted to be laying semi lion's in hospital bed, eyes closed, w/ respirations even and unlabored, connected to cardiac and SPO2 monitoring, HR 75, RR 16, SPO2 96% on 2L via NC
--- NOTE | 2024-12-20 19:39 | HO.NURTONUR ---
Chief Complaint: Lower extremities paralysis David Arriola is a 44 years old man, full code, allergies to ketorolac, with past medical history significant for chronic back pain secondary to spinal stenosis, bipolar disorder, hyperlipidemia, obesity and type 2 diabetes mellitus brought to the emergency department from [facility] on section 12, started to experience inability to move his legs upon waking up around lunch time. Yesterday, he started to feel pain and needles. He denied numbness in his genital area. There is no any issue with stool or urinary incontinence. He did not report any trauma, fever or chills. He did not report any acute cardiopulmonary, gastrointestinal or genitourinary symptoms. He mentioned that he has arm 6 episodes of nonbloody watery diarrhea that spontaneously resolved. He said that he is feeling better emotionally and is not suicidal. He did not report alcohol abuse, illicit drug use or tobacco smoking. In the ED he was found to have stable vital signs. Blood workupis normal. Patient underwent an LP and CSF analysis is remarkable for elevated total protein, 70.1. PCRs for multiple organisms are all negative. ECG showed normal sinus rhythm with no acute ischemic changes. ED tx: Acetaminophen 1 g IV, morphine 16 mg IV total Has a siiter due to section 12 due to SI (tx via [place]) Has 2L via NC due to episode desat while sleeping no hx of COPD or sleep apnea Patient will need hospitalization for at least 2 midnights for the imbalances syndrome treatment and management with IVIG, continue neuro checks, and evaluation by subspecialty.
--- NOTE | 2024-12-20 20:26 | P.CNPS_ITS ---
History of Present Illness Date of Service: 12/20/24 @ 1150 Chief Complaint: Suspected Guillain-Conway Reason for Consult: medication management for psychiatric illnesses. Requesting physician: Rufina Mesa Discussed with referring provider: Yes (Dr Tate- attending ) Sources of Information: patient interviewed, chart reviewed and crisis/core team assessment reviewed HPI Narrative: Per ED provider note: Patient is 44 years old male with past medical history significant for chronic back pain secondary to spinal stenosis, bipolar disorder, hyperlipidemia, obesity and type 2 diabetes mellitus brought to the emergency department from [facility] on section 12, started to experience inability to move his legs upon waking up around lunch time. He said that he is feeling better emotionally and is not suicidal. He did not report alcohol abuse, illicit drug use or tobacco smoking. In the ED he was found to have stable vital signs. Blood workup showed no leukocytosis and differential is normal. ESR is 13 and CRP is elevated at 0.59. TSH and albumin are normal. Patient underwent an LP and CSF analysis is remarkable for elevated total protein, 70.1. PCRs for multiple organisms are all negative. ECG showed normal sinus rhythm with no acute ischemic changes. Patient will need hospitalization for at least 2 midnights for the imbalances syndrome treatment and management with IVIG, continue neuro checks, and evaluation by subspecialty. Past Psychiatric History: Multiple psychiatric admissions hx. Admitted at [facility] on 12/15 for SI. Medical Evaluation Reviewed: Yes Deferred to medical team Personal & Social History: Patient is , has one 12-y.o son with high functioning autism. He has a stable home to return Review of Systems Review of Systems No SOB, N/V. No labor breathing. No dizziness or lightheaded. [facility] Medical History ADHD Bipolar disorder Chronic back pain Morbid obesity Hyperlipidemia Essential hypertension Type 2 diabetes mellitus Family History: I do not talk to my family for a long period of time . Not sure if mental health or substance use run in family Social History: , unemployed, has one 12y.o son. Substance History: Denies but report smoking weed only. Trauma History: Denies Diagnostics Vital Signs (24Hr): Vital Signs - 24 hr 12/19/24 21:26 12/20/24 00:05 12/20/24 02:50 Temperature 97.7 F 98.2 F Pulse Rate 94 86 81 Respiratory Rate 22 H 21 H Blood Pressure 120/81 115/65 136/76 Pulse Oximetry 95 98 94 Oxygen Delivery Method Room Air Room Air Room Air Oxygen Flow Rate 12/20/24 05:26 12/20/24 05:46 12/20/24 09:40 Temperature 97.6 F 97.8 F Pulse Rate 70 89 Respiratory Rate 18 20 Blood Pressure 137/79 130/74 Pulse Oximetry 94 90 L Oxygen Delivery Method Room Air Room Air Oxygen Flow Rate 12/20/24 09:45 12/20/24 10:11 Temperature Pulse Rate 75 75 Respiratory Rate 16 18 Blood Pressure Pulse Oximetry 88 L 95 Oxygen Delivery Method Room Air Nasal Cannula Oxygen Flow Rate 2 BMI result Body Mass Index 60.7 Labs 12/20/24 04:48 12/20/24 04:48 Labs: Laboratory Results - last 48 hr 12/19/24 12/19/24 12/19/24 15:27 18:40 18:40 WBC 9.0 RBC 5.67 Hgb 15.5 Hct 47.7 MCV 84.1 MCH 27.3 MCHC 32.5 RDW 14.0 Plt Count 247 MPV 9.3 L Immature Gran % (Auto) 0.2 Neut % (Auto) 53.0 Lymph % (Auto) 33.1 Knott % (Auto) 10.5 Eos % (Auto) 2.6 Baso % (Auto) 0.6 Lymph # (Auto) 3.0 Knott # (Auto) 1.0 Eos # (Auto) 0.2 Baso # (Auto) 0.1 Abs Immat Gran (auto) 0.02 Absolute Neuts (auto) 4.8 Absolute Nucleated RBC 0.000 Nucleated RBC % (auto) 0.0 ESR 13 Sodium 141 Potassium 4.2 Chloride 104 Carbon Dioxide 30 H Anion Gap 11 L BUN 7 L Creatinine 0.60 Estim Creat Clear Calc 257.3 Estimated GFR > 60 POC Glucose Random Glucose 85 Calcium 9.2 Magnesium 1.9 Total Bilirubin 0.5 Direct Bilirubin 0.2 AST 35 ALT 72 H Alkaline Phosphatase 82 Total Creatine Kinase 140 C-Reactive Protein 0.59 H C-React Prot High Sens 4.8 H Total Protein 7.3 Albumin 4.3 Vitamin B12 TSH 0.44 CSF Tube Number 2 4 CSF Volume 3.0 CSF Appearance CLEAR CSF Color COLORLESS CSF WBC 1 CSF RBC 0 CSF Lymphocytes 47 CSF Monocytes % 53 CSF Appearance (b) Clear, Colorless CSF Glucose 76 CSF Total Protein 70.1 H CSF C.neoform/gat PCR Not Detected CSF CMV DNA (PCR) Not Detected CSF Enterovirus (PCR) Not Detected CSF E. coli K1 (PCR) Not Detected CSF H. influenzae (PCR) Not Detected CSF HSV I (PCR) Not Detected CSF HSV II (PCR) Not Detected CSF HHV 6 (PCR) Not Detected CSF L.monocytogenes PCR Not Detected CSF N. meningitidis PCR Not Detected CSF Parechovirus (PCR) Not Detected CSF S. agalactiae (PCR) Not Detected CSF S. pneumoniae (PCR) Not Detected CSF VZV (PCR) Not Detected Hepatitis A IgM Ab Hep Bs Antigen Hep Bs Antibody Hep B Core Total Ab Hepatitis C Ab (EIA) 12/20/24 12/20/24 12/20/24 04:48 08:59 13:26 WBC 7.0 RBC 5.43 Hgb 14.7 Hct 45.9 MCV 84.5 MCH 27.1 MCHC 32.0 RDW 14.2 Plt Count 229 MPV 9.8 Immature Gran % (Auto) 0.3 Neut % (Auto) 57.3 Lymph % (Auto) 31.2 Knott % (Auto) 8.0 Eos % (Auto) 2.6 Baso % (Auto) 0.6 Lymph # (Auto) 2.2 Knott # (Auto) 0.6 Eos # (Auto) 0.2 Baso # (Auto) 0.0 Abs Immat Gran (auto) 0.02 Absolute Neuts (auto) 4.0 Absolute Nucleated RBC 0.000 Nucleated RBC % (auto) 0.0 ESR Sodium 138 Potassium 3.8 Chloride 101 Carbon Dioxide 27 Anion Gap 14 BUN 11 Creatinine 0.71 Estim Creat Clear Calc 217.4 Estimated GFR > 60 POC Glucose 180 H 156 H Random Glucose 141 H Calcium 9.0 Magnesium Total Bilirubin Direct Bilirubin AST ALT Alkaline Phosphatase Total Creatine Kinase C-Reactive Protein C-React Prot High Sens Total Protein Albumin Vitamin B12 524 TSH CSF Tube Number CSF Volume CSF Appearance CSF Color CSF WBC CSF RBC CSF Lymphocytes CSF Monocytes % CSF Appearance (b) CSF Glucose CSF Total Protein CSF C.neoform/gat PCR CSF CMV DNA (PCR) CSF Enterovirus (PCR) CSF E. coli K1 (PCR) CSF H. influenzae (PCR) CSF HSV I (PCR) CSF HSV II (PCR) CSF HHV 6 (PCR) CSF L.monocytogenes PCR CSF N. meningitidis PCR CSF Parechovirus (PCR) CSF S. agalactiae (PCR) CSF S. pneumoniae (PCR) CSF VZV (PCR) Hepatitis A IgM Ab Nonreactive Hep Bs Antigen Negative Hep Bs Antibody REACTIVE Hep B Core Total Ab Nonreactive Hepatitis C Ab (EIA) Nonreactive 12/20/24 18:33 WBC RBC Hgb Hct MCV MCH MCHC RDW Plt Count MPV Immature Gran % (Auto) Neut % (Auto) Lymph % (Auto) Knott % (Auto) Eos % (Auto) Baso % (Auto) Lymph # (Auto) Knott # (Auto) Eos # (Auto) Baso # (Auto) Abs Immat Gran (auto) Absolute Neuts (auto) Absolute Nucleated RBC Nucleated RBC % (auto) ESR Sodium Potassium Chloride Carbon Dioxide Anion Gap BUN Creatinine Estim Creat Clear Calc Estimated GFR POC Glucose 146 H Random Glucose Calcium Magnesium Total Bilirubin Direct Bilirubin AST ALT Alkaline Phosphatase Total Creatine Kinase C-Reactive Protein C-React Prot High Sens Total Protein Albumin Vitamin B12 TSH CSF Tube Number CSF Volume CSF Appearance CSF Color CSF WBC CSF RBC CSF Lymphocytes CSF Monocytes % CSF Appearance (b) CSF Glucose CSF Total Protein CSF C.neoform/gat PCR CSF CMV DNA (PCR) CSF Enterovirus (PCR) CSF E. coli K1 (PCR) CSF H. influenzae (PCR) CSF HSV I (PCR) CSF HSV II (PCR) CSF HHV 6 (PCR) CSF L.monocytogenes PCR CSF N. meningitidis PCR CSF Parechovirus (PCR) CSF S. agalactiae (PCR) CSF S. pneumoniae (PCR) CSF VZV (PCR) Hepatitis A IgM Ab Hep Bs Antigen Hep Bs Antibody Hep B Core Total Ab Hepatitis C Ab (EIA) Mental Status Exam Mental Status Exam Narrative: Patient is A+Ox4, calm, pleasant and cooperative. Wearing hospital attire, in bed resting. Speech is WNL, normal volume and rate. no manic behavior. Appear to be depressed. Missing family. Thought process is organized and linear. Thought content is on treatment for medical problems, mood is scared and worried regarding medication condition. Denies SI/SIB/HI/AVH. Want to be home after medically clear. Fair insight and judgment. Medications Medications Current Medications Acetaminophen (Acetaminophen 325 Mg Tablet) 975 mg PO Q6H PRN PRN Reason: Pain, Mild 1-3,fever,headache Calcium Carbonate (Calcium Carbonate 750 Mg Tab.Chew) 750 mg PO Q4H PRN PRN Reason: Heartburn Calcium Carbonate (Calcium Carbonate 750 Mg Tab.Chew) 750 mg PO Q4H PRN PRN Reason: Heartburn Dextrose (Dextrose 50 % 25 Gm/50 Ml Syringe) 25 gm IVPUSH Q15M PRN; Protocol PRN Reason: per Hypoglycemia Standing Ord. Divalproex Sodium (Divalproex Sodium Er 500 Mg Tab.Er.24h) 500 mg PO BID [facility] Docusate Sodium (Docusate Sodium 100 Mg Capsule) 100 mg PO BID [facility] Duloxetine HCl (Duloxetine Hcl 60 Mg Capsule.Dr) 60 mg PO DAILY [facility] Duloxetine HCl (Duloxetine Hcl 30 Mg Capsule.Dr) 30 mg PO BEDTIME [facility] Gabapentin (Gabapentin 300 Mg Capsule) 300 mg PO TID [facility] Last Admin: 12/20/24 15:19 Dose: 300 mg Glipizide (Glipizide 10 Mg Tablet) 10 mg PO BID [facility] Glucose (Glucose Gel 15 Gm Gel..Gram.) 15 gm PO Q15M PRN; Protocol PRN Reason: per Hypoglycemia Standing Ord. Guaifenesin (Guaifenesin La 600 Mg Tab.Er.12h) 1,200 mg PO Q12H PRN PRN Reason: Cough Hydroxyzine HCl (Hydroxyzine Hcl 50 Mg Tablet) 50 mg PO Q4H PRN PRN Reason: Anxiety Immune Globulin (Gammagard 10%) 10 gm in 100 mls @ 91 mls/hr IV DAILY@0000 [facility] Stop: 12/24/24 01:06 Last Infusion: 12/20/24 00:47 Dose: Infused Immune Globulin (Gammagard 10%) 30 gm in 300 mls @ 91 mls/hr IV DAILY@0110 [facility] Stop: 12/24/24 04:28 Last Infusion: 12/20/24 04:47 Dose: Infused Immune Globulin (Gammagard 10%) 30 gm in 300 mls @ 91 mls/hr IV DAILY@0430 [facility] Stop: 12/24/24 07:48 Last Infusion: 12/20/24 08:55 Dose: Infused Insulin Human Lispro (Insulin Lispro 100 Unit/Ml 3 Ml Vial) 0 unit SUBCUT QIDACHS [facility]; Protocol Last Admin: 12/20/24 18:38 Dose: Not Given Lisinopril (Lisinopril 40 Mg Tablet) 40 mg PO BEDTIME [facility]; Protocol Magnesium Hydroxide (Milk Of Magnesia 30 Ml Oral.Susp) 30 ml PO DAILY PRN PRN Reason: Constipation Melatonin (Melatonin 3 Mg Tablet) 6 mg PO BEDTIME PRN PRN Reason: Insomnia Metformin HCl (Metformin Hcl 1,000 Mg Tablet) 1,000 mg PO BIDWM [facility] Last Admin: 12/20/24 18:38 Dose: 1,000 mg Oxycodone HCl (Oxycodone Hcl Immed Release 5 Mg Tablet) 5 mg PO Q6H PRN PRN Reason: chronic pain Last Admin: 12/20/24 10:17 Dose: 5 mg Sodium Chloride (0.9 % Sodium Chloride Flush 3 Ml Syringe) 3 ml IVFLUSH QSHIFT [facility] Last Admin: 12/20/24 17:39 Dose: Not Given Trazodone HCl (Trazodone Hcl 50 Mg Tablet) 50 mg PO BEDTIME MRX1 PRN PRN Reason: insomnia Allergies Allergies Allergy/AdvReac Type Severity Reaction Status Date / Time ketorolac (From Toradol) Allergy Unknown Verified 12/19/24 13:43 Assessment & Plan Assessment & Plan (1) Bipolar II disorder: Status: Acute Code(s): F31.81 - Bipolar II disorder Plan Meet with patient in assigned room ED08 where before transferred to [facility] floor for medical treatment. Patient is alert and oriented x4. 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 Report that he was sent here from [facility] as lost feeling of my leg . Patient is aware of current medication condition and would like to complete treatment. Patient would like to be discharged after he is medically clear. Denies SI/SIB/HI/AVH, states that I miss my son and my family. Report his son is high functioning autism but without patient, his son may have tough time at home. 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 Report he takes Depakote, Duloxetine 60 Am and 30mg at HS but not sure if he remembers correct dose of meds. Home meds taken care of and continue after reviewing per pharmacy record. Attempted to call and left VM to provider at [facility]. Provider who took care of patient went on vacation. Other provider is not giving updated current med list. Depakoke ER 500mg BID Metformin 1,000mg BID Glipizide 10mg BID Duloxetine 60mg daily in the morning and 30mg at HS Gabapentin 300mg TID Vistaril 50mg q4hr prn for anxiety trazodone 50mg PRN. May RPx1 for insomnia Report no long taking Amitriptyline. Will order VPA and ammonia level. Should expect to be subtherapeutic level as he was not given Depakote last night. Once patient is medically clear, patient would be safe to discharge home with family. Attending Dr Tate is aware. Continue treatment for medical condition according to medical team plan. Per attending note: He is admitted this morning with Guillain bare syndrome and has rapidly imrpvoed with IVIG. see by Neurology with the following remarks Response to IVIG therapy was remarkably quick. His EMG study showed a distal polyneuropathy with primarily axonal features. This however can be seen in patients with diabetic neuropathy. Of note, elevated CSF protein can also be seen in diabetic patients. Given the rapid onset of his symptoms however it seems reasonable to presume and treat as GBS. I would recommend finishing up a course of IVIG therapy with close monitoring of symptoms and physical exam as planned. Total time managing care of this patient today ____ minutes. Patient educated on: diagnosis, medication risk/benefits and therapeutic strategies Informed Consent: understands
[2024-12-20 21:00] LABS: Glucose, Whole Blood 171 mg/dL (60-115)
[2024-12-21] VITALS: BP 137/82; PULSE 86; RESP 16; TEMP 37.1; O2SAT 92
[2024-12-21] MEDS: Immune Globulin 10% Gammagard 10 GM/100 ML VIAL IV (00:33)
[2024-12-21] MEDS: Immune Globulin 10% Gammagard 30 GM/300 ML VIAL IV ×2 (01:17→04:31)
[2024-12-21] MEDS: oxyCODONE HCl Immed Release 5 MG TABLET PO ×3 (03:08→15:10)
[2024-12-21 04:00] VITALS: BP 113/59; PULSE 87; RESP 16; TEMP 37.1; O2SAT 96
[2024-12-21 06:47] LABS: Lyme Abs Screen <0.90 index
[2024-12-21 07:25] VITALS: BP 110/61; PULSE 72; RESP 20; TEMP 36.6; O2SAT 92
[2024-12-21 07:38] LABS: Glucose, Whole Blood 120 mg/dL (60-115)
[2024-12-21 08:15] LABS: Ammonia 54 umol/L (13-55)
[2024-12-21] MEDS: 0.9 % Sodium Chloride Flush 3 ML SYRINGE IVFLUSH (10:45)
[2024-12-21 11:40] VITALS: BP 145/93; PULSE 91; RESP 18; TEMP 36.8; O2SAT 94
[2024-12-21 11:58] LABS: Glucose, Whole Blood 157 mg/dL (60-115)
[2024-12-21 15:50] VITALS: BP 133/80; PULSE 89; RESP 18; TEMP 36.6; O2SAT 93
--- NOTE | 2024-12-21 16:08 | MHC.CM.PN ---
Pt has been medically cleared to DC to his home in [place], [place]. Pt. does not have a ride, or anyone that can come get him. CM met with him to see if he could get a bus to [place], [place], he has no one that can meet him there, [facility] was set up. plan is self care.
[2024-12-21 16:11] LABS: Glucose, Whole Blood 86 mg/dL (60-115)
--- NOTE | 2024-12-21 16:32 | P.DS_ITS ---
DS: Providers Provider Date of Service: 12/21/24 Date of admission: 12/20/24 02:19 Date of discharge: 12/21/24 Primary care physician: Unknown Physician Consults: 12/20/24 02:22 Consult to Neurology Routine Consulting Provider: [facility] Reason for consultation: Guillain-A[place] Has provider been notified: No 12/20/24 03:56 Consult to Psychiatry Routine Consulting Provider: [facility] Reason for consultation: Multiple psych issues, currently sectioned 12 from [facility] Has provider been notified: No DS: Diagnosis Discharge Diagnosis (1) Bipolar II disorder: Status: Acute DS: Summary Hospital Course Hospital Course: Chief Complaint: Lower extremities paralysis David Arriola is a very pleasant 44 years old man with past medical history significant for chronic back pain secondary to spinal stenosis, bipolar disorder, hyperlipidemia, obesity and type 2 diabetes mellitus brought to the emergency department from [facility] on section 12, started to experience inability to move his legs upon waking up around lunch time. Yesterday, he started to feel pain and needles. He denied numbness in his genital area. There is no any issue with stool or urinary incontinence. He did not report any trauma, fever or chills. He did not report any acute cardiopulmonary, gastrointestinal or genitourinary symptoms. He mentioned that he has arm 6 episodes of nonbloody watery diarrhea that spontaneously resolved. He said that he is feeling better emotionally and is not suicidal. He did not report alcohol abuse, illicit drug use or tobacco smoking. In the ED he was found to have stable vital signs. Blood workup showed no leukocytosis and differential is normal. ESR is 13 and CRP is elevated at 0.59. TSH and albumin are normal. Patient underwent an LP and CSF analysis is remarkable for elevated total protein, 70.1. PCRs for multiple organisms are all negative. ECG showed normal sinus rhythm with no acute ischemic changes. ED tx: Acetaminophen 1 g IV, morphine 16 mg IV total Hospital course: He was admitted for Guillain barre syndrome and has rapidly imrpvoed with initiation of IVIG. He was see by Neurology with the following remarks Response to IVIG therapy was remarkably quick. His EMG study showed a distal polyneuropathy with primarily axonal features. This however can be seen in patients with diabetic neuropathy. Of note, elevated CSF protein can also be seen in diabetic patients. Given the rapid onset of his symptoms however it seems reasonable to presume and treat as GBS. I would recommend finishing up a course of IVIG therapy with close monitoring of symptoms and physical exam as planned. Patient was back to his baseline following second dose of IVIG, see by PT with no indication for PT. He was reassessed by Neuro with recommendation for discharge with steroid dereck over 5 to 10 days. Time Attestation Discharge Coordination Time (in mins): 40 Quality: Safe Use of Opioids Does Pt have an Active Cancer Diagnosis on the Problem List?: No Quality: Stroke Does the patient have a stroke diagnosis?: No Physical Exam Vital Signs: Vital Signs: Last Vital Signs Temp 97.8 F 12/21/24 15:50 Pulse 89 12/21/24 15:50 Resp 18 12/21/24 15:50 BP 133/80 12/21/24 15:50 Pulse Ox 93 12/21/24 15:50 O2 Del Method Room Air 12/21/24 15:50 O2 Flow Rate 2 12/20/24 10:11 BMI result Body Mass Index 61.0 DS: Data Data Completed and Pending Labs on day of discharge: Laboratory Results - last 24 hr 12/20/24 12/20/24 12/20/24 04:48 18:33 20:56 POC Glucose 146 H 171 H Ammonia Valproic Acid Lyme Screen IgG & IgM <0.90 12/21/24 12/21/24 12/21/24 07:32 07:56 07:57 POC Glucose 120 H Ammonia 54 Valproic Acid < 12.5 L Lyme Screen IgG & IgM 12/21/24 12/21/24 11:52 15:55 POC Glucose 157 H 86 Ammonia Valproic Acid Lyme Screen IgG & IgM Preliminary micro results at discharge 12/19/24 18:40 CSF Culture - Preliminary Cerebrospinal Fluid No growth after 1 day Discharge Plan Discharge Anticipated Discharge Date/Time: 12/21/24 16:37 Patient Disposition: Home, Self-Care Discharge Diagnosis: Guillain Bare Referrals: Jeff Gonzalez MD [Physician, Neurology] - 1 Week Physician,Sue J [Primary Care Provider, Medical] - 1 Week Discharge Medications: New prednisone 10 mg tablet See Taper PO DIRECTED Qty: 27 0RF Taper: Prednisone 40 mg daily for 3 Days and 0 Hour 30 mg daily for 3 Days and 0 Hour 20 mg daily for 2 Days and 0 Hour 10 mg daily for 2 Days and 0 Hour Rx Instructions: see taper instructions Continued acetaminophen 325 mg Tablet 650 mg PO Q4H PRN (Reason: Fever Or Pain) tramadol 25 mg tablet 25 mg PO Q6H PRN (Reason: pain) metformin 500 mg Tablet 500 mg PO BIDWMEAL glipizide 10 mg tablet 10 mg PO BID hydroxyzine pamoate 50 mg Capsule 50 mg PO Q4H PRN (Reason: Anxiety) benzocaine 15 mg Lozenge 15 mg MUCOUS MEMBRANE Q2H PRN (Reason: Sore Throat) divalproex 500 mg Tablet Extended Release 24 Hr 1,000 mg PO BEDTIME calcium carbonate 500 mg calcium (1,250 mg) Tablet,Chewable 500 mg PO Q4H PRN (Reason: Heartburn) alum-mag hydroxide-simeth 200-200-20 mg/5 mL Suspension 30 ml PO QID PRN (Reason: Constipation) Rx Instructions: administer between meals and at bedtime lisinopril 40 mg tablet 40 mg PO BEDTIME docusate sodium 100 mg Tablet 100 mg PO BID guaifenesin [Mucinex] 600 mg Tablet Extended Release 12hr 1,200 mg PO Q12H PRN (Reason: Cough) Discharge Orders: Discharge Order (Routine); Ordered 12/21/24 Ordered By: Mau Tate Diet: Advance to usual diet Activity on Discharge: As tolerated Stand Alone Forms: Patient Portal Discharge page Print Language: Kyrgyz Care Plan Goals: recovery from Guillain-Athens syndrome Health Concerns: Guillain-Athens syndrome Plan of Treatment: take prednisone as directed follow-up with friend Neurology clinic at [place] follow-up with your primary care physician continue all usual medications Assessment: See above
[2024-12-24 19:48] LABS: HIV RNA PCR Qn Copies Not Detected Copies/mL; HIV RNA PCR Qn Log Copies Not Detected Log cps/mL
--- NOTE | 2024-12-29 07:11 | P.CDIM_ITS ---
PROVIDER RESPONSE TEXT: To clarify, the appropriate diagnosis supported by the clinical indicators: Obesity Due to excess calories QUERY TEXT: PHYSICIAN'S DOCUMENTATION REQUEST Date of Query: 12/21/2024 01:53 PM EDT Patient Name: David Arriola Admit Date: 12/20/2024 Dear Mau Tate MD, A review of the medical record indicates additional documentation may be needed. Please review below and update the documentation accordingly. Clinical Indicators: Height: ( ) 5'8 Weight: ( ) 182 kg BMI: ( ) 61.0 Other Clinical Notes Supporting Significance of the BMI: If possible, please provide an associated diagnosis related to the abnormal BMI, such as: Overweight Obesity Due to excess calories Obesity Drug induced Obesity Due to other cause Specify the other cause Severe or Morbid Obesity With alveolar hypoventilation Severe or Morbid Obesity Without alveolar hypoventilation BMI is not significant Other (explain) Clinically unable to determine (explain) Thank you, Dorcas Sales RN Use of terms such as suspected, likely, concern for, or probable (associated with a specific diagnosis that is being evaluated, monitored, or treated as if it exists) are acceptable and can be coded in the inpatient setting, when documented at the time of discharge. Please use your independent medical judgment in providing your response. THIS QUERY IS PART OF THE PERMANENT MEDICAL RECORD
== END 2024-12-21 17:00 | disposition home or self-care (01) | DRG 49 ==
LOC: HO.ED 18:52 → HO.EDOVER 12-20 02:33 → HO.S3 12-20 16:44 → HO.EDOVER 12-20 17:14 → HO.IMC 12-20 19:15
PROVIDERS: Nurse Practitioner Psychiatric/Mental Health; Physician Assistant Medical; Admitting Provider Internal Medicine; Emergency Provider Emergency Medicine Emergency Medical Services; Visit Provider Internal Medicine
DX: G61.0 Guillain-Barre syndrome (principal); Z68.44 Body mass index [BMI] 60.0-69.9, adult; E11.9 Type 2 diabetes mellitus without complications; F17.210 Nicotine dependence, cigarettes, uncomplicated; Z71.6 Tobacco abuse counseling; I10 Essential (primary) hypertension; F31.81 Bipolar II disorder; E66.09 Other obesity due to excess calories; Z71.3 Dietary counseling and surveillance; G89.29 Other chronic pain; M54.9 Dorsalgia, unspecified; Z79.84 Long term (current) use of oral hypoglycemic drugs; Z79.899 Other long term (current) drug therapy
CPT/HCPCS: 36415; 80048; 80076; 80164; 82140; 82550; 82607; 82945; 82947; 83735; 84157; 84443; 85025; 85652; 86140; 86141; 86617; 86618; 86625; 86704; 86706; 86709; 86803; 87015; 87070; 87205; 87340; 87483; 87536; 87900; 89051; 93005; 94010; 95913; 97162; 97166; 99285; J0131; J1569; J2270

== ENCOUNTER 2024-12-20 02:19 | Outpatient (BNV) | payer MEDICAID, SELFPAY | END 2024-12-20 03:19 | PROVIDERS: Admitting Provider Internal Medicine; Emergency Provider Emergency Medicine Emergency Medical Services; Visit Provider Internal Medicine Cardiovascular Disease | DX: R94.31 Abnormal electrocardiogram [ECG] [EKG] (principal); Z13.6 Encounter for screening for cardiovascular disorders | CPT/HCPCS: 93010 ==

== ENCOUNTER → 2024-12-20 02:19 | Outpatient (BNV) | payer OTHER, SELFPAY | PROVIDERS: Admitting Provider Internal Medicine; Emergency Provider Emergency Medicine Emergency Medical Services; Visit Provider Nurse Practitioner | DX: R83.8 Other abnormal findings in cerebrospinal fluid (principal); R53.1 Weakness; R20.2 Paresthesia of skin | CPT/HCPCS: 95913; 99222 ==

== ENCOUNTER → 2024-12-20 02:19 | Outpatient (BNV) | payer OTHER, SELFPAY | PROVIDERS: Admitting Provider Internal Medicine; Emergency Provider Emergency Medicine Emergency Medical Services; Visit Provider Nurse Practitioner Psychiatric/Mental Health | DX: F31.81 Bipolar II disorder (principal) | CPT/HCPCS: 99232 ==

== ENCOUNTER → 2024-12-20 02:19 | Outpatient (BNV) | payer OTHER, SELFPAY | PROVIDERS: Admitting Provider Internal Medicine; Emergency Provider Emergency Medicine Emergency Medical Services; Visit Provider Internal Medicine | DX: G61.0 Guillain-Barre syndrome (principal); R83.8 Other abnormal findings in cerebrospinal fluid | CPT/HCPCS: 99223; 99499 ==